=== PATIENT | male | born 1980 | race Caucasian/White ===

== ENCOUNTER 2023-06-23 14:34 | Inpatient (IN) | payer OTHER ==
--- NOTE | 2023-06-23 15:30 | XR ---
Right foot. HISTORY: Soft tissue injury right great toe COMPARISON: None. TECHNIQUE: 3 views the right foot were obtained. FINDINGS: There is marked soft tissue swelling and soft tissue gas in the right great toe. There is no underlyi ng osseous or intra-articular abnormality. There is a tiny linear radiopaque foreign body along the d orsal aspect of the distal phalanx of the great toe. IMPRESSION: 1. Marked soft tissue swelling , soft tissue gas and tiny radiopaque foreign body of the right great toe as described above. 2. No osseous or intra-articular abnormality.
--- NOTE | 2023-06-23 15:50 | ED ---
General Adult HPI - General Source: patient Mode of arrival: ambulatory Limitations: no limitations <Rosales Rodriguez - Last Filed: 06/23/23 15:51> <Vinnie Patel - Last Filed: 06/23/23 20:03> - General Chief complaint: Skin/Abscess/Foreign Body Stated complaint: wound on foot - History of Present Illness Initial comments: Quick note: Patient is a 42 year old male with left foot wound. Patient states a wound started on the right great toe a few weeks ago, but worsened in the past week. It is painful at times. Patient is not diabetic. No neuropathy. He denies any vascular issues that he is aware of. He has felt feverish over the past few days but has not taken his temperature. He has not had any treatment started. (Rosales Rodriguez) - Related Data Home Medications Medication Instructions Recorded Confirmed No Known Home Medications 06/23/23 06/23/23 Allergies Allergy/AdvReac Type Severity Reaction Status Date / Time No Known Allergies Allergy Verified 06/23/23 20:02 Review of Systems ROS Other: All systems not noted in ROS Statement are negative. <Rosales Rodriguez - Last Filed: 06/23/23 15:51> ROS Other: All systems not noted in ROS Statement are negative. <Vinnie Patel - Last Filed: 06/23/23 20:03> ROS Statement: Those systems with pertinent positive or pertinent negative responses have been documented in the HPI. Past Medical History Past Medical History: No Reported History History of Any Multi-Drug Resistant Organisms: None Reported Past Surgical History: No Surgical Hx Reported Past Psychological History: No Psychological Hx Reported Smoking Status: Never smoker Past Alcohol Use History: None Reported Past Drug Use History: None Reported <Rosales Rodriguez - Last Filed: 06/23/23 15:51> General Exam Limitations: no limitations <Rosales Rodriguez - Last Filed: 06/23/23 15:51> General appearance: alert, in no apparent distress Head exam: Present: atraumatic, normocephalic Eye exam: Present: normal appearance Respiratory exam: Present: normal lung sounds bilaterally. Absent: respiratory distress, wheezes Cardiovascular Exam: Present: regular rate, normal rhythm GI/Abdominal exam: Present: soft. Absent: distended, tenderness, guarding Extremities exam: Present: other (Soft tissue swelling, erythema into the mid foot. There is ulceration at the base of the right great toe with wet gangrene. Foul, purulent drainage) Psychiatric exam: Present: normal affect, normal mood Skin exam: Present: warm <EvangelinaVinnie bowers Siomara - Last Filed: 06/23/23 20:03> Course Vital Signs 06/23/23 06/23/23 15:04 18:40 Temperature 99.1 F 98.3 F Pulse Rate 103 H 90 Respiratory 20 20 Rate Blood Pressure 166/83 O2 Sat by Pulse 98 99 Oximetry Medical Decision Making <Rosales Rodriguez - Last Filed: 06/23/23 15:51> - Lab Data Result diagrams: 06/23/23 18:20 06/23/23 18:20 <EvangelinamirnaVinnie Siomara - Last Filed: 06/23/23 20:03> - Medical Decision Making Exam showed significant right great toe edema/erthema. Electronically signed by Rosales Rodriguez PA-C (Rosales Rodriguez) Was pt. sent in by a medical professional or institution ([facility], MORTGAGE FIELD INSPECTOR, urgent care, hospital, or fpc...) When possible be specific @ -No Did you speak to anyone other than the patient for history (EMS, parent, family, police, friend...)? What history was obtained from this source @ -No Did you review nursing and triage notes (agree or disagree)? Why? @ -I reviewed and agree with nursing and triage notes Were old charts reviewed (outside hosp., previous admission, EMS record, old EKG, old radiological studies, urgent care reports/EKG's, fpc records)? Report findings @ -No old charts were reviewed Differential Diagnosis (chest pain, altered mental status, abdominal pain women, abdominal pain men, vaginal bleeding, weakness, fever, dyspnea, syncope, headache, dizziness, GI bleed, back pain, seizure, CVA, palpatations, mental health, musculoskeletal)? @Cellulitis, neck doesn't fasciitis, gangrene, diabetic foot ulcer EKG interpreted by me (3pts min.). @ -As above X-rays interpreted by me (1pt min.). @X-ray showing soft tissue swelling, trace amount of soft tissue gas at the site of ulceration with questionable foreign body. CT interpreted by me (1pt min.). @ -None done U/S interpreted by me (1pt. min.). @ -None done What testing was considered but not performed or refused? (CT, X-rays, U/S, labs)? Why? @ -None What meds were considered but not given or refused? Why? @ -None Did you discuss the management of the patient with other professionals (professionals i.e. Dr., PA, MORTGAGE FIELD INSPECTOR, lab, RT, psych nurse, social worker health services, accounts payable clerk, teacher, electrical engineering drafting officer, case planner)? Give summary @ -Sound physician group Was smoking cessation discussed for >3mins.? @ -No Was critical care preformed (if so, how long)? @ -No Were there social determinants of health that impacted care today? How? (Homelessness, low income, unemployed, alcoholism, drug addiction, transportation, low edu. Level, literacy, decrease access to med. care, nursing home, rehab)? @ -No Was there de-escalation of care discussed even if they declined (Discuss DNR or withdrawal of care, Hospice)? DNR status @ -No What co-morbidities impacted this encounter? (DM, HTN, Smoking, COPD, CAD, Cancer, CVA, ARF, Chemo, Hep., AIDS, mental health diagnosis, sleep apnea, morbid obesity)? @ -Patient does not follow regularly with a doctor Was patient admitted / discharged? Hospital course, mention meds given and route, prescriptions, significant lab abnormalities, going to OR and other pertinent info. @ -[22-year-old male with soft tissue infection of the right great toe, wet gangrene on exam. There is ulceration at the plantar surface of the great toe and soft tissue gas on x-ray. There is erythema into the mid foot. Patient is afebrile with mild leukocytosis. He will be admitted for IV antibiotics and vascular consult. Case discussed with Dr. Delacruz who will admit. Undiagnosed new problem with uncertain prognosis? @ -No Drug Therapy requiring intensive monitoring for toxicity (Heparin, Nitro, Insulin, Cardizem)? @ -No Were any procedures done? @ -No Diagnosis/symptom? @ -[Wet gangrene, cellulitis Acute, or Chronic, or Acute on Chronic? @ -Acute Uncomplicated (without systemic symptoms) or Complicated (systemic symptoms)? @ -default Side effects of treatment? @ -No Exacerbation, Progression, or Severe Exacerbation? @ -No Poses a threat to life or bodily function? How? (Chest pain, [place], [place], pneumonia, PE, COPD, DKA, ARF, appy, cholecystitis, CVA, Diverticulitis, Homicidal, Suicid al, threat to staff... and all critical care pts) @ -[Yes, sepsis (Vinnie Patel) - Lab Data Lab Results 06/23/23 06/23/23 06/23/23 Range/Units 18:20 18:20 18:20 WBC 12.5 H (3.8-10.6) k/uL RBC 5.30 (4.30-5.90) m/uL Hgb 15.1 (13.0-17.5) gm/dL Hct 44.3 (39.0-53.0) % MCV 83.6 (80.0-100.0) fL MCH 28.5 (25.0-35.0) pg MCHC 34.1 (31.0-37.0) g/dL RDW 11.9 (11.5-15.5) % Plt Count 336 (150-450) k/uL MPV 7.1 Neutrophils % 76 % Lymphocytes % 12 % Monocytes % 7 % Eosinophils % 0 % Basophils % 0 % Neutrophils # 9.5 H (1.3-7.7) k/uL Lymphocytes # 1.5 (1.0-4.8) k/uL Monocytes # 0.9 (0-1.0) k/uL Eosinophils # 0.0 (0-0.7) k/uL Basophils # 0.0 (0-0.2) k/uL Sodium 131 L (137-145) mmol/L Potassium 4.4 (3.5-5.1) mmol/L Chloride 92 L (98-107) mmol/L Carbon Dioxide 24 (22-30) mmol/L Anion Gap 15 mmol/L BUN 12 (9-20) mg/dL Creatinine 0.56 L (0.66-1.25) mg/dL Est GFR (CKD-EPI)AfAm >90 (>60 ml/min/1.73 sqM) Est GFR (CKD-EPI)NonAf >90 (>60 ml/min/1.73 sqM) Glucose 318 H (74-99) mg/dL Plasma Lactic Acid Hayes 1.4 (0.7-2.0) mmol/L Calcium 9.2 (8.4-10.2) mg/dL Total Bilirubin 0.8 (0.2-1.3) mg/dL AST 20 (17-59) U/L ALT 21 (4-49) U/L Alkaline Phosphatase 106 (38-126) U/L C-Reactive Protein 25.5 H (<1.0) mg/dL Total Protein 7.0 (6.3-8.2) g/dL Albumin 3.7 (3.5-5.0) g/dL Disposition <Rosales Rodriguez - Last Filed: 06/23/23 15:51> Is patient prescribed a controlled substance at d/c from ED?: No Time of Disposition: 19:41 <Vinnie Patel - Last Filed: 06/23/23 20:03> Clinical Impression: Cellulitis, Wet gangrene Disposition: ADMITTED IP TO THIS HOSP Condition: Stable Referrals: None,Stated [Primary Care Provider] - 1-2 days
[2023-06-23] MEDS ORDERED: VANCOMYCIN IV PER PHARMACY 1 EACH MISC MISCELLANE PRN (18:14)
[2023-06-23] MEDS ORDERED: VANCOMYCIN 1,750 MG in SODIUM CHLORIDE 0.9% 500 ML 500 ML IVPB ONE (18:30)
[2023-06-23 19:21] LABS: Basophils % (A) 0 %; Eosinophils % (A) 0 %; HCT 44.3 % (39.0-53.0); HGB 15.1 gm/dL (13.0-17.5); Lymphocytes # (A) 1.5 k/uL (1.0-4.8); Lymphocytes % (A) 12 %; MCH 28.5 pg (25.0-35.0); MCHC 34.1 g/dL (31.0-37.0); MCV 83.6 fL (80.0-100.0); Mean Platelet Volume 7.1; Monocytes # (A) 0.9 k/uL (0-1.0); Monocytes % (A) 7 %; Neutrophils # (A) 9.5 k/uL (1.3-7.7); Neutrophils % (A) 76 %; Platelet Count 336 k/uL (150-450); RDW 11.9 % (11.5-15.5); WBC 12.5 k/uL (3.8-10.6)
[2023-06-23] MEDS ORDERED: HYDROmorphone 0.5 MG/0.5 ML SYRINGE IVP PRN (19:23)
[2023-06-23] MEDS ORDERED: ACETAMINOPHEN TAB 325 MG TAB PO PRN (19:23)
[2023-06-23] MEDS ORDERED: NALOXONE 0.4 MG/ML 1 ML VIAL IV PRN (19:23)
[2023-06-23] MEDS: PIPERACILLIN-TAZOBACTAM 3.375 GM in SODIUM CHLORIDE 0.9% 100 ML IVPB SCH (19:27)
[2023-06-23 19:36] LABS: ALT 21 U/L (4-49); AST 20 U/L (17-59); African American GFR (CKD) >90 (>60 ml/min/1.73 sqM); Albumin 3.7 g/dL (3.5-5.0); Alkaline Phosphatase 106 U/L (38-126); Anion Gap 15 mmol/L; Blood Urea Nitrogen 12 mg/dL (9-20); Calcium 9.2 mg/dL (8.4-10.2); Carbon Dioxide 24 mmol/L (22-30); Chloride 92 mmol/L (98-107); Glucose 318 mg/dL (74-99); Non-African American GFR(CKD) >90 (>60 ml/min/1.73 sqM); Potassium 4.4 mmol/L (3.5-5.1); Sodium 131 mmol/L (137-145); Total Bilirubin 0.8 mg/dL (0.2-1.3)
[2023-06-23 19:51] LABS: C Reactive Protein 25.5 mg/dL (<1.0)
[2023-06-23] MEDS ORDERED: ALPRAZolam 0.25 MG TAB PO PRN (19:52)
[2023-06-23] MEDS ORDERED: ONDANSETRON 4 MG/2 ML VIAL IVP PRN (19:52)
[2023-06-23] MEDS: SODIUM CHLORIDE 0.9% 1,000 ML IV SCH (19:55)
[2023-06-23] MEDS ORDERED: DEXTROSE 50% SYRINGE 50 ML IVP PRN ×2 (20:03)
--- NOTE | 2023-06-23 20:03 | P.HPIM ---
History of Present Illness H&P Date: 06/23/23 Chief Complaint: right great toe swelling 42-year-old male with significant past medical history Patient coming in with right great toe swelling and skin sloughing with proximal erythema this has been going on for about 2 weeks he does not recall any specific injury that started as a blister over the plantar surface of his right great toe then he try to clear it pokes around it and then got worse gradually he noticed some increased pain and erythema for which she was using triple antibiotics topical but over the past couple days he started having some low- grade fevers and chills and noticed that the swelling got worse with discoloration and sloughing of the skin along with proximal erythema warmth to the touch and swelling over the foot for which she decided to come in for evaluation today. 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 Patient denies any history of diabetes hypertension or any other medical issues however he does not see a doctor patient does not take any prescription medications Patient denies tobacco smoking illicit drugs or heavy alcohol Denies any upper respiratory infection symptoms nausea vomiting chest pain trouble breathing abdominal pain changes in bowel or urinary habits Review of systems review of systems Pertinent positives as noted in HPI. All other systems were reviewed and are negative on exam Constitutional: No acute distress, conversant, pleasant Eyes: Anicteric sclerae, moist conjunctiva, Pupils equal round reactive to light ENMT: NC/AT Oropharynx clear, no erythema, or exudates Neck: Supple, no masses, or JVD No carotid bruits No thyromegaly Lungs: Clear to auscultation Clear to percussion Normal respiratory effort, no accessory muscle use Cardiovascular: Heart regular in rate and rhythm, No murmurs, gallops, or rubs No peripheral edema Abdominal: Soft Nontender, no guarding, rebound or rigidity Abdomen moving with respiration Normoactive bowel sounds No hepatomegaly, No splenomegaly No palpable mass No abdominal wall hernia noted Skin: Swelling of the right great toe with discoloration of the toe sloughing of the skin no active drainage, with erythema extending proximally into the midfoot along with swelling and some pinkish discoloration extending into the mid leg tender to palpation warm to the touch Extremities: No digital cyanosis No clubbing Pedal pulses intact and symmetrical Radial pulses intact and symmetrical No calf tenderness Psychiatric: Alert and oriented to person, place and time Appropriate affect fair judgement Neuro Muscles Strength 5/5 in all 4 extremities Sensation to light touch grossly present throughout Cranial nerves II-XII grossly intact Lymphatics: no palpable cervical or supraclavicular lymph nodes Past Medical History Past Medical History: No Reported History History of Any Multi-Drug Resistant Organisms: None Reported Past Surgical History: No Surgical Hx Reported Past Psychological History: No Psychological Hx Reported Smoking Status: Never smoker Past Alcohol Use History: None Reported Past Drug Use History: None Reported Medications and Allergies Home Medications Medication Instructions Recorded Confirmed Type No Known Home Medications 06/23/23 06/23/23 History Allergies Allergy/AdvReac Type Severity Reaction Status Date / Time No Known Allergies Allergy Verified 06/23/23 15:07 Physical Exam Vitals: Vital Signs Temp Pulse Resp BP Pulse Ox 06/23/23 18:40 98.3 F 90 20 99 06/23/23 15:04 99.1 F 103 H 20 166/83 98 Intake and Output 06/23/23 06/23/23 06/23/23 06:59 14:59 22:59 Other: Weight 113.398 kg Results CBC & Chem 7: 06/23/23 18:20 06/23/23 18:20 Labs: Abnormal Lab Results - Last 24 Hours (Table) 06/23/23 Range/Units 18:20 WBC 12.5 H (3.8-10.6) k/uL Neutrophils # 9.5 H (1.3-7.7) k/uL Assessment and Plan Assessment: 42-year-old male no significant past medical history coming in with couple week history of gradually worsening right great toe swelling and discoloration and skin sloughing denies any specific injuries I discussed case with the adductor accepted the admission for sepsis secondary to with gangrene of the right great toe with anticipated length of stay more than 2 midnights Sepsis secondary to with gangrene of the right great toe Follow-up cultures Vascular surgery consult Initiate patient on Zosyn 3.75 g every 8 hours IV piggyback Vancomycin dosing by pharmacy Tylenol for fever 650 mg when necessary every 6 hours by mouth [place] 53 25 mg every 6 hours when necessary 1 tab by mouth IV fluid hydration, start with septic bolus 1 L/h 2 then continue with 130 mL per hour Rule out underlying diabetes check A1c CBC reported white count of 12.5, hemoglobin 15.1 CRP elevated 25.5 Follow-up ESR Foot x-ray showed soft tissue swelling soft gas and tiny radiopaque foreign body in the right great toe along the dorsal aspect of the great toe, no evidence of osseous or intra-articular abnormalities Suspected underlying diabetes mellitus random blood glucoses 318 Follow-up A1c Start patient on insulin sliding scale Elevated blood pressure without diagnosis of hypertension Continue to monitor Suspect patient also hypertensive When necessary blood pressure meds for systolic blood pressure above 180 Full code DVT prophylaxis heparin subcu 5000 unit 3 times a day
[2023-06-23] MEDS ORDERED: SODIUM CHLORIDE 0.9% 2,000 ML IV ONE (20:04)
[2023-06-23] MEDS ORDERED: cloNIDine HCL 0.2 MG TAB PO PRN (20:04)
[2023-06-23 20:51] LABS: Glucose,Whole Blood 287 mg/dL (70-110)
[2023-06-23] MEDS: INSULIN ASPART (NovoLOG) 100 UNIT/ML VIAL SQ SCH (21:31)
[2023-06-24] MEDS: PIPERACILLIN-TAZOBACTAM 3.375 GM in SODIUM CHLORIDE 0.9% 100 ML IVPB SCH ×2 (00:54→08:11)
[2023-06-24] MEDS: HEPARIN SODIUM,PORCINE 5,000 UNIT/ML 1 ML VIAL SQ SCH ×4 (00:55→22:14)
[2023-06-24] MEDS: SODIUM CHLORIDE 0.9% 1,000 ML IV SCH ×3 (03:05→14:37)
[2023-06-24] MEDS: VANCOMYCIN 1,750 MG in SODIUM CHLORIDE 0.9% 500 ML 500 ML IVPB SCH ×2 (05:02→12:34)
[2023-06-24 06:15] LABS: Glucose,Whole Blood 197 mg/dL (70-110)
[2023-06-24] MEDS: INSULIN ASPART (NovoLOG) 100 UNIT/ML VIAL SQ SCH ×4 (06:28→22:14)
[2023-06-24 10:59] LABS: Glucose,Whole Blood 256 mg/dL (70-110)
--- NOTE | 2023-06-24 13:10 | P.PN ---
Subjective Progress Note Date: 06/24/23 Hospital course: Patient is a 42-year-old male with no reported past medical history however does not follow up outpatient with a primary doctor. Patient presented to the emergency department on 06/23/23 secondary to right great toe pain and swelling. Patient was found to have significant swelling of right great toe accompanied by erythema and sloughing of skin with erythema extending up into dorsal surface of foot as well as lower and mid youngblood. He underwent full evaluation in the emergency department. Labs were completed showing leukocytosis with WBC count of 12.5. BMP showing mild hyponatremia sodium 131, hypochloremia with chloride of 92, and an elevated glucose of 318. Inflammatory markers were elevated with ESR of 106 and CRP of 25.5. X-ray right foot showing marked soft tissue swelling with soft gas and tiny radiopaque foreign body on the right great toe negative for osseous or intra-articular abnormality. Patient admitted under services with consultation to vascular surgery and infectious disease. Physical exam: Vital signs reviewed and stable. General: Nontoxic, no distress and appears stated age. Derm: Skin warm and dry, normal coloration for ethnicity.patient significant swelling of right great toe accompanied by erythema and sloughing of skin with erythema extending up into dorsal surface of foot as well as lower and mid youngblood. Head: Atraumatic, normocephalic and symmetric. Eyes: EOMs intact, no lid lag, and anicteric sclera Mouth: no lip lesions, mucus membranes moist Cardiovascular: regular rate and rhythm with normal S1S2, no murmur, positive posterior tibial pulses bilaterally, and cap refill < 2 seconds. Lungs: Respirations even, regular, and unlabored on room air. Lungs CTA bilaterally, no rhonchi, no rales, no wheezing, and no accessory muscle usage. Abdominal: soft, nontender to palpation, no guarding, no appreciable organomegaly Ext: ROM intact. No gross muscle atrophy, no edema, no contractures Neuro: Speech clear, face symmetrical and CN II-XII grossly intact with no noted focal neuro deficits Psych: Alert and oriented to person, place, time, and situation. Appropriate and pleasant affect. Assessment and Plan of Care: Bacteremia Gangrene infection of right great toe Sepsis secondary to above -Vascular surgery following -Infectious disease following -Continuation of IV antibiotics with Unasyn 3 g every 6 hours pending final culture and sensitivity reports. -Blood cultures preliminarily positive for group B strep 2 out of 2 cultures. We'll follow up on final culture and sensitivity reports. -Tylenol 650 mg every 6 hours as needed for mild pain/fever, [place] 5/325 mg tablets as needed for moderate pain, and Dilaudid 0.5 mg every 3 hours as needed for severe pain. Newly diagnosed diabetes mellitus with a hemoglobin A1c of 12.7% Hyperglycemia with Pseudohyponatremia -Patient placed on glycemic protocol with NovoLog sliding scale. Patient will likely require home insulin upon discharge. Hypertension with Poorly controlled blood pressures -Patient denies history of hypertension blood pressure is elevated as high as 171/95. -Patient started on amlodipine 5 mg daily. Data and imaging reviewed: Labs were completed and reviewed. CBC showing leukocytosis with WBC count of 12.5. BMP showing mild hyponatremia sodium 131, hypochloremia with chloride of 92, and an elevated glucose of 318. Inflammatory markers were elevated with ESR of 106 and CRP of 25.5. X-ray right foot showing marked soft tissue swelling with soft gas and tiny radiopaque foreign body on the right great toe negative for osseous or intra- articular abnormality Vital signs reviewed. Blood pressure 157/77, heart rate 87, temp 101.1F, respiratory rate 20, and SpO2 of 95% on room air. CODE STATUS: Full code DVT prophylaxis: Heparin Anticipated discharge date: Clinical course to determine Anticipated discharge place: Clinical course to determine Patient was seen independently by Nurse Pracitioner. This document was prepared using [employer] dictation software. Please allow for errors in woodenware assembler, while rare they do occur. Manny Sanchez NP rendered care for this patient independently, reviewed the findings and plan as documented in the note above. I did not physically speak with or examine the patient on this date. Objective - Vital Signs Vital signs: Vital Signs Temp 99.6 F 06/24/23 09:07 Pulse 87 06/24/23 07:14 Resp 20 06/24/23 07:14 BP 157/77 06/24/23 07:14 Pulse Ox 95 06/24/23 07:14 FiO2 Intake & Output 06/23/23 06/24/23 06/24/23 18:59 06:59 18:59 Weight 113.398 kg 113.398 kg Other: # Voids 3 - Labs CBC & Chem 7: 06/25/23 04:26 06/25/23 04:26 Labs: Abnormal Lab Results - Last 24 Hours (Table) 06/23/23 06/23/23 06/23/23 Range/Units 18:20 18:20 18:20 WBC 12.5 H (3.8-10.6) k/uL Neutrophils # 9.5 H (1.3-7.7) k/uL ESR 106 H (0-15) mm/Hr Sodium 131 L (137-145) mmol/L Chloride 92 L (98-107) mmol/L Creatinine 0.56 L (0.66-1.25) mg/dL Glucose 318 H (74-99) mg/dL POC Glucose (mg/dL) (70-110) mg/dL C-Reactive Protein 25.5 H (<1.0) mg/dL 06/23/23 06/24/23 Range/Units 20:50 06:14 WBC (3.8-10.6) k/uL Neutrophils # (1.3-7.7) k/uL ESR (0-15) mm/Hr Sodium (137-145) mmol/L Chloride (98-107) mmol/L Creatinine (0.66-1.25) mg/dL Glucose (74-99) mg/dL POC Glucose (mg/dL) 287 H 197 H (70-110) mg/dL C-Reactive Protein (<1.0) mg/dL
[2023-06-24] MEDS: AMPICILLIN-SULBACTAM 3 GM in SODIUM CHLORIDE 0.9% 100 ML IVPB SCH ×2 (14:35→22:14)
[2023-06-24] MEDS: amLODIPine 5 MG TAB PO SCH (16:17)
[2023-06-24 17:12] LABS: Glucose,Whole Blood 221 mg/dL (70-110)
[2023-06-24 20:52] LABS: Glucose,Whole Blood 260 mg/dL (70-110)
[2023-06-24] MEDS: oxyCODONE-APAP 5-325MG 1 EACH TAB PO PRN (22:36)
[2023-06-25] MEDS: SODIUM CHLORIDE 0.9% 1,000 ML IV SCH ×3 (01:16→16:57)
[2023-06-25] MEDS: AMPICILLIN-SULBACTAM 3 GM in SODIUM CHLORIDE 0.9% 100 ML IVPB SCH ×4 (02:30→21:14)
[2023-06-25 06:05] LABS: Glucose,Whole Blood 179 mg/dL (70-110)
[2023-06-25] MEDS: INSULIN ASPART (NovoLOG) 100 UNIT/ML VIAL SQ SCH ×4 (06:32→21:13)
--- NOTE | 2023-06-25 07:42 | P.CONS ---
History of Present Illness - Reason for Consult Consult date: 06/24/23 Gangrene right great toe Requesting physician: Manny Sanchez - Chief Complaint Right big toe discussion swelling redness x few days - History of Present Illness Patient is a 42-year-old male with no significant past medical history presenting to the ER yesterday afternoon for a evaluation of the right big toe swelling and redness apparently the patient did have a trauma initially few weeks ago and the patient has been taking care of it at home with some peroxide and soaking however he noticed having worsening swelling redness to the right big toe patient did have some symptoms of pressure but denies any throbbing or excruciating pain did have some foul-smelling drainage patient mention he did have some chills but did not take his temperature patient on presentation to the hospital did have a low-grade fever of 99.1 degrees for right he did spike a fever of 101 F this morning patient was not tachycardic hypotensive or hypoxic did however did have elevated white count of -12.5 with a left shift kidney function is 0.56 liver exams are normal CRP and sed rate are elevated patient did have a x-ray of the foot marked soft tissue swelling soft tissue gas and tiny radiopaque foreign body of the right great toe patient was started on vancomycin and Zosyn subsequently blood cultures came back positive with start that has prompted this infectious disease consultation Case has been discussed with [employer] antibiotic adjusted to Unasyn pending evaluation, patient also noticed to have a elevated blood sugar of 318 with the present diagnosis of diabetes however the patient not aware of any diagnosis of diabetes before presentation to the hospital Review of Systems Positive point and negatives has been mentioned in the HPI, complete review of systems was performed and all other systems are negative Past Medical History Past Medical History: No Reported History History of Any Multi-Drug Resistant Organisms: None Reported Past Surgical History: Adenoidectomy, Tonsillectomy Additional Past Anesthesia/Blood Transfusion Reaction / Comm: no previous infusion Past Psychological History: No Psychological Hx Reported Smoking Status: Never smoker Past Alcohol Use History: None Reported Past Drug Use History: None Reported - Past Family History Father Family Medical History: Diabetes Mellitus, Deep Vein Thrombosis (DVT), Hyperlipidemia Medications and Allergies Home Medications Medication Instructions Recorded Confirmed Type Insulin Glargine,Hum.rec.anlog 25 units SQ DAILY 30 Days #1 each 12/04/23 Rx [Lantus Solostar Pen] amLODIPine [Norvasc] 10 mg PO DAILY 30 Days #30 tab 07/02/23 Rx cefTRIAXone [Rocephin] 2 gm IVPB Q24HR each 07/02/23 Rx metFORMIN HCL [Glucophage] 500 mg PO BID-W/MEALS 30 Days #60 07/02/23 Rx tab metroNIDAZOLE [Flagyl] 500 mg PO TID #90 tab 07/02/23 Rx oxyCODONE-APAP 5-325MG [Percocet 1 each PO Q4HR PRN #18 tab 07/02/23 Rx 5-325 mg] Allergies Allergy/AdvReac Type Severity Reaction Status Date / Time No Known Allergies Allergy Verified 06/23/23 20:02 Physical Exam Vitals: Vital Signs Temp Pulse Resp BP Pulse Ox 06/24/23 19:57 99.6 F 84 17 148/84 90 L 06/24/23 12:56 98.2 F 80 19 152/78 93 L 06/24/23 09:07 99.6 F 06/24/23 07:14 101.1 F H 87 20 157/77 95 06/24/23 01:09 99.5 F 89 168/80 93 L 06/23/23 20:40 99.7 F H 85 171/95 98 Intake and Output 06/24/23 06/24/23 06/24/23 06:59 14:59 22:59 Intake Total 1640 Balance 1640 Intake: Intake, IV Titration 1640 Amount Piperacillin-Tazobactam 3 100 .375 gm In Sodium Chloride 0.9% 100 ml @ 25 mls/hr IVPB Q8HR [facility] Rx# :[id number] Sodium Chloride 0.9% 1, 1040 000 ml @ 130 mls/hr IV . Q7H42M [facility] Rx#:[id number] Vancomycin 1,750 mg In 500 Sodium Chloride 0.9% 500 ml 500 ml @ 167 mls/hr IVPB Q8H [facility] Rx#: [id number] Other: # Voids 3 GENERAL DESCRIPTION: Middle-aged male lying in bed, no distress. No tachypnea or accessory muscle of respiration use. HEENT: Shows Pallor , no scleral icterus. Oral mucous membrane is dry. No pharyngeal erythema or thrush NECK: Trachea central, no thyromegaly. LUNGS: Unlabored breathing. Clear to auscultation anteriorly. No wheeze or crackle. HEART: S1, S2, regular rate and rhythm. No loud murmur ABDOMEN: Soft, no tenderness , guarding or rigidity, no organomegaly EXTREMITIES: Right big toe with swelling redness and purulent drainage SKIN: No rash, no masses palpable. NEUROLOGICAL: The patient is awake, alert, oriented x3, mood and affect normal. Results CBC & Chem 7: 07/02/23 05:30 07/02/23 05:30 Labs: Abnormal Lab Results - Last 24 Hours (Table) 06/23/23 06/23/23 06/24/23 Range/Units 18:20 20:50 06:14 ESR 106 H (0-15) mm/Hr POC Glucose (mg/dL) 287 H 197 H (70-110) mg/dL Hemoglobin A1c (<=6.0) % 06/24/23 06/24/23 06/24/23 Range/Units 07:21 10:58 17:11 ESR (0-15) mm/Hr POC Glucose (mg/dL) 256 H 221 H (70-110) mg/dL Hemoglobin A1c 12.7 H (<=6.0) % Microbiology - Last 24 Hours (Table) 06/23/23 18:35 Blood Culture Gram Stain - Preliminary Blood 06/23/23 18:30 Blood Culture Gram Stain - Preliminary Blood Assessment and Plan (1) Cellulitis Status: Acute Code(s): L03.90 - CELLULITIS, UNSPECIFIED SNOMED Code(s): 271828870 (2) Diabetic infection of right foot Status: Acute Code(s): E11.628 - TYPE 2 DIABETES MELLITUS WITH OTHER SKIN COMPLICATIONS; L08.9 - LOCAL INFECTION OF THE SKIN AND SUBCUTANEOUS TISSUE, UNSP SNOMED Code(s): 66223175 (3) Wet gangrene Status: Acute Code(s): I96 - GANGRENE, NOT ELSEWHERE CLASSIFIED SNOMED Code(s): 915770315 Plan: 1patient presented to hospital with sepsis in this patient who did have fever e levated white count is also likely her right big toe diabetic foot infection in this patient with evidence of significant swelling and gas formation likely related to the polymicrobial melissa usually associated with diabetic foot infection 2-positive blood culture with staph likely due to right big toe diabetic foot infection 3-blood cultures to be repeated document clearance of bacteremia 4-await vascular surgery evaluation for debridement and deep ulcer 5-Unasyn 3 g every 6 hours to continue, may need IV antibiotic on discharge We will follow on clinical condition and cultures to further adjust medication if needed Thank you for this consultation we will follow the patient along with you Dictation was produced using [employer] dictation software. please excuse any grammatical, word or spelling errors. Time with Patient: Greater than 30
[2023-06-25] MEDS: amLODIPine 5 MG TAB PO SCH (08:27)
[2023-06-25] MEDS: HEPARIN SODIUM,PORCINE 5,000 UNIT/ML 1 ML VIAL SQ SCH ×3 (08:30→23:12)
[2023-06-25] MEDS: oxyCODONE-APAP 5-325MG 1 EACH TAB PO PRN (08:40)
[2023-06-25 08:58] LABS: ALT 19 U/L (10-49); AST 15 U/L (14-35); Albumin 2.8 g/dL (3.8-4.9); Albumin/Globulin Ratio 1.08 Ratio (1.60-3.17); Alkaline Phosphatase 136 U/L (41-126); BUN/Creat Ratio 13.67 Ratio (12.00-20.00); Blood Urea Nitrogen 8.2 mg/dL (9.0-27.0); Calcium 8.3 mg/dL (8.7-10.3); Carbon Dioxide 22.1 mmol/L (21.6-31.8); Chloride 102 mmol/L (96-109); Chol/HDL Ratio 5.67 Ratio; Globulin 2.6 g/dL (1.6-3.3); Glucose 195 mg/dL (70-110); LDL Cholesterol,Calculated 84.2 mg/dL (0.0-131.0); Sodium 137 mmol/L (135-145); Total Bilirubin 0.3 mg/dL (0.3-1.2); Total Protein 5.4 g/dL (6.2-8.2)
[2023-06-25 09:02] LABS: HCT 36.6 % (39.6-50.0); HGB 12.5 g/dL (13.0-17.0); MCH 28.3 pg (27.0-32.0); MCHC 34.2 g/dL (32.0-37.0); MCV 82.8 FL (80.0-97.0); NRBC Per 100 WBC 0 X 10*3/uL (0.00-0.01); Platelet Count 337 X 10*3/uL (140-440); RBC 4.42 X 10*6/uL (4.40-5.60); RDW 11.9 % (11.5-14.5); WBC 10.68 X 10*3/uL (4.50-10.00)
[2023-06-25 09:43] LABS: Erythrocyte Sedimentation Rate 76 mm/Hr (0-15)
[2023-06-25] MEDS ORDERED: VANCOMYCIN TROUGH DUE 1 EACH MISC MISCELLANE ONE (11:00)
[2023-06-25 11:31] LABS: Glucose,Whole Blood 184 mg/dL (70-110)
--- NOTE | 2023-06-25 12:27 | P.GSCN ---
History of Present Illness Consult date: 06/25/23 Reason for Consult: Wet gangrene Requesting physician: Vinnie Patel History of present illness: Patient is a 42-year-old male with newly diagnosed diabetes mellitus this admission who presented to the emergency department with pain and concern for infection of his right great toe. He states he started noticing swelling of his toe and foot about 1-2 weeks ago. He progressively started getting worse and draining. He came in for further evaluation for possible infection. He denies any injury to the toe. He states that he did have fevers and chills at home. No nausea, vomiting, abdominal pain, shortness of breath or chest pain. Right foot x-ray reports marked soft tissue swelling, soft tissue gas and tiny radiopaque foreign body at the right great toe. No osseous or intra-articular abnormality. Tiny linear radiopaque foreign body along the dorsal aspect of the distal phalanx of the great toe. Review of Systems - Constitutional Constitutional Comment(s): A 14 point review systems was completed all pertinent positives and negatives as stated in the HPI. Past Medical History Past Medical History: No Reported History History of Any Multi-Drug Resistant Organisms: None Reported Past Surgical History: Adenoidectomy, Tonsillectomy Additional Past Anesthesia/Blood Transfusion Reaction / Comm: no previous infusion Past Psychological History: No Psychological Hx Reported Smoking Status: Never smoker Past Alcohol Use History: None Reported Past Drug Use History: None Reported - Past Family History Father Family Medical History: Diabetes Mellitus, Deep Vein Thrombosis (DVT), Hyperlipidemia Medications and Allergies Home Medications Medication Instructions Recorded Confirmed Type No Known Home Medications 06/23/23 06/23/23 History Allergies Allergy/AdvReac Type Severity Reaction Status Date / Time No Known Allergies Allergy Verified 06/23/23 20:02 Surgical - Exam Vital Signs Temp Pulse Resp BP Pulse Ox 99.1 F 103 H 20 166/83 98 06/23/23 15:04 06/23/23 15:04 06/23/23 15:04 06/23/23 15:04 06/23/23 15:04 General appearance: The patient is alert, oriented, appears in no acute distress. Obese. HET: Head is normocephalic and atraumatic. Pupils are equal and reactive. Neck: Supple. Heart: Regular. Lungs: Equal expansion, normal respiratory effort. Abdomen: Soft, nontender, nondistended. Extremities: Bilateral lower extremity swelling right greater than left. Palpable bilateral DP pulses. Right foot with erythema, great toe swelling, wound with drainage. Neurological: No focal deficits. Strength and sensation are grossly intact. Results - Labs 06/25/23 04:26 06/25/23 04:26 Abnormal Lab Results - Last 24 Hours (Table) 06/24/23 06/24/23 06/24/23 Range/Units 07:21 10:58 17:11 WBC (4.50-10.00) X 10*3/uL Hgb (13.0-17.0) g/dL Hct (39.6-50.0) % Anion Gap (4.00-12.00) mmol/L BUN (9.0-27.0) mg/dL Glucose (70-110) mg/dL POC Glucose (mg/dL) 256 H 221 H (70-110) mg/dL Hemoglobin A1c 12.7 H (<=6.0) % Calcium (8.7-10.3) mg/dL Alkaline Phosphatase (41-126) U/L C-Reactive Protein (0.00-0.80) mg/dL Total Protein (6.2-8.2) g/dL Albumin (3.8-4.9) g/dL Albumin/Globulin Ratio (1.60-3.17) Ratio HDL Cholesterol (40.00-60.00) mg/dL 06/24/23 06/25/23 06/25/23 Range/Units 20:50 04:26 04:26 WBC 10.68 H (4.50-10.00) X 10*3/uL Hgb 12.5 L (13.0-17.0) g/dL Hct 36.6 L (39.6-50.0) % Anion Gap 12.90 H (4.00-12.00) mmol/L BUN 8.2 L (9.0-27.0) mg/dL Glucose 195 H (70-110) mg/dL POC Glucose (mg/dL) 260 H (70-110) mg/dL Hemoglobin A1c (<=6.0) % Calcium 8.3 L (8.7-10.3) mg/dL Alkaline Phosphatase 136 H (41-126) U/L C-Reactive Protein 13.90 H (0.00-0.80) mg/dL Total Protein 5.4 L (6.2-8.2) g/dL Albumin 2.8 L (3.8-4.9) g/dL Albumin/Globulin Ratio 1.08 L (1.60-3.17) Ratio HDL Cholesterol 23.80 L (40.00-60.00) mg/dL 06/25/23 Range/Units 06:02 WBC (4.50-10.00) X 10*3/uL Hgb (13.0-17.0) g/dL Hct (39.6-50.0) % Anion Gap (4.00-12.00) mmol/L BUN (9.0-27.0) mg/dL Glucose (70-110) mg/dL POC Glucose (mg/dL) 179 H (70-110) mg/dL Hemoglobin A1c (<=6.0) % Calcium (8.7-10.3) mg/dL Alkaline Phosphatase (41-126) U/L C-Reactive Protein (0.00-0.80) mg/dL Total Protein (6.2-8.2) g/dL Albumin (3.8-4.9) g/dL Albumin/Globulin Ratio (1.60-3.17) Ratio HDL Cholesterol (40.00-60.00) mg/dL Microbiology - Last 24 Hours (Table) 06/23/23 18:35 Blood Culture Gram Stain - Preliminary Blood 06/23/23 18:30 Blood Culture Gram Stain - Preliminary Blood Diabetes panel 06/24/23 06/25/23 Range/Units 07:21 04:26 Sodium 137 (135-145) mmol/L Potassium 4.0 (3.5-5.5) mmol/L Chloride 102 (96-109) mmol/L Carbon Dioxide 22.1 (21.6-31.8) mmol/L BUN 8.2 L (9.0-27.0) mg/dL Creatinine 0.6 (0.6-1.5) mg/dL Glucose 195 H (70-110) mg/dL Hemoglobin A1c 12.7 H (<=6.0) % Calcium 8.3 L (8.7-10.3) mg/dL AST 15 (14-35) U/L ALT 19 (10-49) U/L Alkaline Phosphatase 136 H (41-126) U/L Total Protein 5.4 L (6.2-8.2) g/dL Albumin 2.8 L (3.8-4.9) g/dL Triglycerides 135.00 (0.00-149.00) mg/dL HDL Cholesterol 23.80 L (40.00-60.00) mg/dL Calcium panel 06/25/23 Range/Units 04:26 Calcium 8.3 L (8.7-10.3) mg/dL Albumin 2.8 L (3.8-4.9) g/dL Pituitary panel 06/25/23 Range/Units 04:26 Sodium 137 (135-145) mmol/L Potassium 4.0 (3.5-5.5) mmol/L Chloride 102 (96-109) mmol/L Carbon Dioxide 22.1 (21.6-31.8) mmol/L BUN 8.2 L (9.0-27.0) mg/dL Creatinine 0.6 (0.6-1.5) mg/dL Glucose 195 H (70-110) mg/dL Calcium 8.3 L (8.7-10.3) mg/dL Adrenal panel 06/25/23 Range/Units 04:26 Sodium 137 (135-145) mmol/L Potassium 4.0 (3.5-5.5) mmol/L Chloride 102 (96-109) mmol/L Carbon Dioxide 22.1 (21.6-31.8) mmol/L BUN 8.2 L (9.0-27.0) mg/dL Creatinine 0.6 (0.6-1.5) mg/dL Glucose 195 H (70-110) mg/dL Calcium 8.3 L (8.7-10.3) mg/dL Total Bilirubin 0.3 (0.3-1.2) mg/dL AST 15 (14-35) U/L ALT 19 (10-49) U/L Alkaline Phosphatase 136 H (41-126) U/L Total Protein 5.4 L (6.2-8.2) g/dL Albumin 2.8 L (3.8-4.9) g/dL Assessment and Plan Assessment: 1. Right great toe wound with foreign body 2. Osteomyelitis right great toe 3. Bacteremia 4. New onset diabetes mellitus Plan: 1. Keep nothing by mouth 2. Plan for right great toe amputation with deep tissue cultures today 3. Continue antibiotics per recommendations from infectious disease 4. Strict glycemic control Thank you for this consultation, we will continue to follow. The impression and plan of care has been dictated as directed. I performed a history and examination of this patient, discussed the same with the dictator. I agree with the dictator's note ,documented as a scribe. Any additional findings or plans will be noted.
[2023-06-25 16:24] LABS: Glucose,Whole Blood 179 mg/dL (70-110)
[2023-06-25] MEDS ORDERED: LACTATED RINGERS 1,000 ML IV ONE (17:11)
[2023-06-25 17:23] LABS: Glucose,Whole Blood 184 mg/dL (70-110)
--- NOTE | 2023-06-25 17:30 | P.PN ---
Subjective Progress Note Date: 06/25/23 Hospital course: Patient is a 42-year-old male with no reported past medical history however does not follow up outpatient with a primary doctor. Patient presented to the emergency department on 06/23/23 secondary to right great toe pain and swelling. Patient was found to have significant swelling of right great toe accompanied by erythema and sloughing of skin with erythema extending up into dorsal surface of foot as well as lower and mid youngblood. He underwent full evaluation in the emergency department. Labs were completed showing leukocytosis with WBC count of 12.5. BMP showing mild hyponatremia sodium 131, hypochloremia with chloride of 92, and an elevated glucose of 318. Inflammatory markers were elevated with ESR of 106 and CRP of 25.5. X-ray right foot showing marked soft tissue swelling with soft gas and tiny radiopaque foreign body on the right great toe negative for osseous or intra-articular abnormality. Patient admitted under services with consultation to vascular surgery and infectious disease. Physical exam: Vital signs reviewed and stable. General: Nontoxic, no distress and appears stated age. Derm: Skin warm and dry, normal coloration for ethnicity.patient significant swelling of right great toe accompanied by erythema and sloughing of skin with erythema extending up into dorsal surface of foot as well as lower and mid youngblood. Head: Atraumatic, normocephalic and symmetric. Eyes: EOMs intact, no lid lag, and anicteric sclera Mouth: no lip lesions, mucus membranes moist Cardiovascular: regular rate and rhythm with normal S1S2, no murmur, positive posterior tibial pulses bilaterally, and cap refill < 2 seconds. Lungs: Respirations even, regular, and unlabored on room air. Lungs CTA bilaterally, no rhonchi, no rales, no wheezing, and no accessory muscle usage. Abdominal: soft, nontender to palpation, no guarding, no appreciable organomegaly Ext: ROM intact. No gross muscle atrophy, no edema, no contractures Neuro: Speech clear, face symmetrical and CN II-XII grossly intact with no noted focal neuro deficits Psych: Alert and oriented to person, place, time, and situation. Appropriate and pleasant affect. Assessment and Plan of Care: Bacteremia Gangrene infection of right great toe Sepsis secondary to above -Vascular surgery following, planning to take patient for right great toe amputation later today. -Infectious disease following -Continuation of IV antibiotics with Unasyn 3 g every 6 hours pending final culture and sensitivity reports. -Blood cultures preliminarily positive for group B strep 2 out of 2 cultures. We'll follow up on final culture and sensitivity reports. -Tylenol 650 mg every 6 hours as needed for mild pain/fever, Fenton 5/325 mg tablets as needed for moderate pain, and Dilaudid 0.5 mg every 3 hours as needed for severe pain. Newly diagnosed diabetes mellitus with a hemoglobin A1c of 12.7% Hyperglycemia with Pseudohyponatremia -Patient placed on glycemic protocol with NovoLog sliding scale. Patient will likely require home insulin upon discharge. Hypertension with Poorly controlled blood pressures -Patient denies history of hypertension blood pressure is elevated as high as 171/95. -Patient started on amlodipine 5 mg daily. Data and imaging reviewed: Labs were completed and reviewed. CBC showing leukocytosis with WBC count of 12.5. BMP showing mild hyponatremia sodium 131, hypochloremia with chloride of 92, and an elevated glucose of 318. Inflammatory markers were elevated with ESR of 106 and CRP of 25.5. X-ray right foot showing marked soft tissue swelling with soft gas and tiny radiopaque foreign body on the right great toe negative for osseous or intra- articular abnormality Vital signs reviewed. Blood pressure 171/83, heart rate 94, respiratory rate 18, temp 98.1F, SpO2 of 95% on room air. CODE STATUS: Full code DVT prophylaxis: Heparin Anticipated discharge date: Clinical course to determine Anticipated discharge place: Clinical course to determine Patient was seen independently by Nurse Pracitioner. This document was prepared using [employer] dictation software. Please allow for errors in automobile brakes bonder, while rare they do occur. Manny Sanchez NP rendered care for this patient independently, reviewed the findings and plan as documented in the note above. I did not physically speak with or examine the patient on this date. Objective - Vital Signs Vital signs: Vital Signs Temp 98.1 F 06/25/23 07:02 Pulse 94 06/25/23 07:02 Resp 18 06/25/23 07:02 BP 171/83 06/25/23 07:02 Pulse Ox 95 06/25/23 07:02 FiO2 Intake & Output 06/24/23 06/25/23 06/25/23 18:59 06:59 18:59 Intake Total 1640 Balance 1640 Intake: Intake, IV Titration 1640 Amount Piperacillin-Tazobactam 3 100 .375 gm In Sodium Chloride 0.9% 100 ml @ 25 mls/hr IVPB Q8HR [facility] Rx# :[id number] Sodium Chloride 0.9% 1, 1040 000 ml @ 130 mls/hr IV . Q7H42M [facility] Rx#:[id number] Vancomycin 1,750 mg In 500 Sodium Chloride 0.9% 500 ml 500 ml @ 167 mls/hr IVPB Q8H [facility] Rx#: [id number] Other: # Voids 3 - Labs CBC & Chem 7: 06/26/23 04:32 06/26/23 04:32 Labs: Abnormal Lab Results - Last 24 Hours (Table) 06/24/23 06/24/23 06/24/23 Range/Units 07:21 10:58 17:11 POC Glucose (mg/dL) 256 H 221 H (70-110) mg/dL Hemoglobin A1c 12.7 H (<=6.0) % 06/24/23 06/25/23 Range/Units 20:50 06:02 POC Glucose (mg/dL) 260 H 179 H (70-110) mg/dL Hemoglobin A1c (<=6.0) % Microbiology - Last 24 Hours (Table) 06/23/23 18:35 Blood Culture Gram Stain - Preliminary Blood 06/23/23 18:30 Blood Culture Gram Stain - Preliminary Blood
[2023-06-25] MEDS ORDERED: ONDANSETRON 4 MG/2 ML VIAL IVP ONE (17:39)
[2023-06-25] MEDS ORDERED: DEXAMETHASONE SOD PHOSPHATE 4 MG/ML 1 ML VIAL IVP ONE (17:40)
[2023-06-25] MEDS ORDERED: KETAMINE HCL IN 0.9 % NACL 50 MG/5 ML SYRINGE ONE (17:41)
[2023-06-25] MEDS ORDERED: fentaNYL (PF) 50 MCG/ML 2 ML AMP ONE (17:41)
[2023-06-25] MEDS ORDERED: MIDAZOLAM 2 MG/2 ML VIAL ONE (17:41)
[2023-06-25] MEDS ORDERED: BUPIVACAINE (PF) 0.25% 30 ML VIAL SQ ONE ×2 (17:58)
[2023-06-25 18:45] LABS: HCT 40.1 % (39.0-53.0); HGB 13.4 gm/dL (13.0-17.5); MCH 28.1 pg (25.0-35.0); MCHC 33.4 g/dL (31.0-37.0); MCV 84.2 fL (80.0-100.0); Mean Platelet Volume 7.5; Platelet Count 358 k/uL (150-450); RBC 4.76 m/uL (4.30-5.90); RDW 12.3 % (11.5-15.5); WBC 10.1 k/uL (3.8-10.6)
--- NOTE | 2023-06-25 19:33 | P.PN ---
Subjective Progress Note Date: 06/25/23 Principal diagnosis: Reason for follow-up is right big toe diabetic foot infection with osteomyelitis Patient is a 42-year-old male with no significant past medical history presenting to the ER for a evaluation of the right big toe swelling and redness, patient with a newly diagnosed diabetes mellitus has been diagnosed with the diabetic foot infection along with strep bacteremia. On today's evaluation that is 06/25/2023, the patient remains to be afebrile, the patient is breathing comfortably on room air and denies any shortness of breath, the patient denies any chest pain, no significant cough or sputum production, patient denies nausea/vomiting /diarrhea and no abdominal pain, denies any worsening pain to the right big toe Patient white count normalized to 10.1, creatinine 0.6, blood culture with Streptococcus agalactiae Objective - Vital Signs Vital signs: Vital Signs Temp 98.1 F 06/25/23 07:02 Pulse 94 06/25/23 07:02 Resp 18 06/25/23 07:02 BP 171/83 06/25/23 07:02 Pulse Ox 95 06/25/23 07:02 FiO2 Intake & Output 06/24/23 06/25/23 06/25/23 18:59 06:59 18:59 Intake Total 1640 Balance 1640 Intake: Intake, IV Titration 1640 Amount Piperacillin-Tazobactam 3 100 .375 gm In Sodium Chloride 0.9% 100 ml @ 25 mls/hr IVPB Q8HR [facility] Rx# :[id number] Sodium Chloride 0.9% 1, 1040 000 ml @ 130 mls/hr IV . Q7H42M [facility] Rx#:[id number] Vancomycin 1,750 mg In 500 Sodium Chloride 0.9% 500 ml 500 ml @ 167 mls/hr IVPB Q8H [facility] Rx#: [id number] Other: # Voids 3 - Exam GENERAL DESCRIPTION: A middle-age male lying in bed in no distress RESPIRATORY SYSTEM: Unlabored breathing , clear to auscultation anteriorly HEART: S1 S2 regular rate and rhythm , ABDOMEN: Soft , no tenderness EXTREMITIES: Right big toe is currently dressed minimal drainage on the dressing - Labs CBC & Chem 7: 06/25/23 18:17 06/25/23 04:26 Labs: Abnormal Lab Results - Last 24 Hours (Table) 06/24/23 06/24/2323 Range/Units 07:21 17:11 20:50 WBC (4.50-10.00) X 10*3/uL Hgb (13.0-17.0) g/dL Hct (39.6-50.0) % ESR (0-15) mm/Hr Anion Gap (4.00-12.00) mmol/L BUN (9.0-27.0) mg/dL Glucose (70-110) mg/dL POC Glucose (mg/dL) 221 H 260 H (70-110) mg/dL Hemoglobin A1c 12.7 H (<=6.0) % Calcium (8.7-10.3) mg/dL Alkaline Phosphatase (41-126) U/L C-Reactive Protein (0.00-0.80) mg/dL Total Protein (6.2-8.2) g/dL Albumin (3.8-4.9) g/dL Albumin/Globulin Ratio (1.60-3.17) Ratio HDL Cholesterol (40.00-60.00) mg/dL 06/25/23 06/25/23 06/25/23 Range/Units 04:26 04:26 06:02 WBC 10.68 H (4.50-10.00) X 10*3/uL Hgb 12.5 L (13.0-17.0) g/dL Hct 36.6 L (39.6-50.0) % ESR 76 H (0-15) mm/Hr Anion Gap 12.90 H (4.00-12.00) mmol/L BUN 8.2 L (9.0-27.0) mg/dL Glucose 195 H (70-110) mg/dL POC Glucose (mg/dL) 179 H (70-110) mg/dL Hemoglobin A1c (<=6.0) % Calcium 8.3 L (8.7-10.3) mg/dL Alkaline Phosphatase 136 H (41-126) U/L C-Reactive Protein 13.90 H (0.00-0.80) mg/dL Total Protein 5.4 L (6.2-8.2) g/dL Albumin 2.8 L (3.8-4.9) g/dL Albumin/Globulin Ratio 1.08 L (1.60-3.17) Ratio HDL Cholesterol 23.80 L (40.00-60.00) mg/dL 06/25/23 Range/Units 11:30 WBC (4.50-10.00) X 10*3/uL Hgb (13.0-17.0) g/dL Hct (39.6-50.0) % ESR (0-15) mm/Hr Anion Gap (4.00-12.00) mmol/L BUN (9.0-27.0) mg/dL Glucose (70-110) mg/dL POC Glucose (mg/dL) 184 H (70-110) mg/dL Hemoglobin A1c (<=6.0) % Calcium (8.7-10.3) mg/dL Alkaline Phosphatase (41-126) U/L C-Reactive Protein (0.00-0.80) mg/dL Total Protein (6.2-8.2) g/dL Albumin (3.8-4.9) g/dL Albumin/Globulin Ratio (1.60-3.17) Ratio HDL Cholesterol (40.00-60.00) mg/dL Microbiology - Last 24 Hours (Table) 06/23/23 18:30 Blood Culture Gram Stain - Preliminary Blood Blood Culture - Preliminary Strep agalactiae - (group b) 06/23/23 18:35 Blood Culture Gram Stain - Preliminary Blood Blood Culture - Preliminary Strep agalactiae - (group b) Assessment and Plan (1) Streptococcal bacteremia Current Visit: Yes Status: Acute Code(s): R78.81 - BACTEREMIA; B95.5 - UNSP STREPTOCOCCUS THE CAUSE OF DISEASES [facility] SNOMED Code(s): 921272477099 (2) Diabetic infection of right foot Current Visit: Yes Status: Acute Code(s): E11.628 - TYPE 2 DIABETES MELLITUS WITH OTHER SKIN COMPLICATIONS; L08.9 - LOCAL INFECTION OF THE SKIN AND SUBCUTANEOUS TISSUE, UNSP SNOMED Code(s): 76977967 (3) Wet gangrene Current Visit: Yes Status: Acute Code(s): I96 - GANGRENE, NOT ELSEWHERE CLASSIFIED SNOMED Code(s): 406986457 Plan: 1patient presented to hospital with sepsis in this patient who did have fever elevated white count is also likely her right big toe diabetic foot infection in this patient with evidence of significant swelling and gas formation likely related to the polymicrobial melissa usually associated with diabetic foot infecti on 2-positive blood culture with Streptococcus agalactiae likely due to right big toe diabetic foot infection 3-blood cultures to be repeated document clearance of bacteremia 4Await debridement and deep cultures this afternoon 5-patient to continue with Unasyn 3 g every 6 hours to continue, and monitor clinical course closely Dictation was produced using [employer] dictation software. please excuse any grammatical, word or spelling errors. Time with Patient: Less than 30
--- NOTE | 2023-06-25 19:45 | P.OP ---
Date of Procedure: 06/25/23 Description of Procedure: DATE OF SERVICE: SURGEON: Brandy Vicente DO BLOCK CABLEMAN: None PREOPERATIVE DIAGNOSIS: Right great toe diabetic foot ulcer and infection POSTOPERATIVE DIAGNOSIS: Same OPERATION: Right great toe amputation. ANESTHESIA: Sedation with local ESTIMATED BLOOD LOSS: 100 mL SPECIMENS REMOVED: Right great toe for disposal COMPLICATIONS: None DESCRIPTION OF PROCEDURE: This patient is a 42-year-old male with diabetes who has had an area of wound on his right great toe and subsequently developed more bulbous appearing discoloration. On images workup is found to have infection of his toe and given the look and appearance with. Drainage was recommended he undergo a great toe amputation. Risks and benefits were discussed. He seemingly understood and was unable to proceed. The patient was brought to the operating room under local IV sedation and ring block was performed, and a circular incision was made at the base of the proximal phalanx extending on the medial portion of the foot, deepened through the skin, fat, and tendons. Tendons were divided prior to plantar and dorsal aspect of the great toe. After that, proximal phalanx was dislocated from the metatarsal joint. The metatarsal head was then transected with the bone cutters. Hemostasis was well controlled with electrocautery and incision was approximated with 3-0 Vicryl and 20 nylon interrupted suture. With an area left open at the lateral portion of the wound. Dressing applied. The patient tolerated the procedure well.
[2023-06-25 20:59] LABS: Glucose,Whole Blood 227 mg/dL (70-110)
[2023-06-26] MEDS: AMPICILLIN-SULBACTAM 3 GM in SODIUM CHLORIDE 0.9% 100 ML IVPB SCH ×4 (02:33→20:26)
[2023-06-26] MEDS: oxyCODONE-APAP 5-325MG 1 EACH TAB PO PRN ×2 (02:35→11:52)
[2023-06-26] MEDS: SODIUM CHLORIDE 0.9% 1,000 ML IV SCH ×4 (02:39→23:47)
[2023-06-26 05:59] LABS: Glucose,Whole Blood 305 mg/dL (70-110)
[2023-06-26] MEDS: INSULIN ASPART (NovoLOG) 100 UNIT/ML VIAL SQ SCH ×4 (06:19→20:26)
[2023-06-26] MEDS: amLODIPine 5 MG TAB PO SCH (07:59)
[2023-06-26] MEDS: HEPARIN SODIUM,PORCINE 5,000 UNIT/ML 1 ML VIAL SQ SCH ×3 (07:59→23:43)
[2023-06-26 08:37] LABS: HCT 40.1 % (39.6-50.0); HGB 13.5 g/dL (13.0-17.0); MCH 27.8 pg (27.0-32.0); MCHC 33.7 g/dL (32.0-37.0); MCV 82.5 FL (80.0-97.0); NRBC Per 100 WBC 0 X 10*3/uL (0.00-0.01); Platelet Count 423 X 10*3/uL (140-440); RBC 4.86 X 10*6/uL (4.40-5.60); RDW 12.1 % (11.5-14.5); WBC 9.12 X 10*3/uL (4.50-10.00)
[2023-06-26 08:53] LABS: ALT 18 U/L (10-49); AST 11 U/L (14-35); Albumin 2.8 g/dL (3.8-4.9); Albumin/Globulin Ratio 0.97 Ratio (1.60-3.17); Alkaline Phosphatase 123 U/L (41-126); BUN/Creat Ratio 17.33 Ratio (12.00-20.00); Blood Urea Nitrogen 10.4 mg/dL (9.0-27.0); Calcium 8.6 mg/dL (8.7-10.3); Carbon Dioxide 20.7 mmol/L (21.6-31.8); Chloride 102 mmol/L (96-109); Globulin 2.9 g/dL (1.6-3.3); Glucose 319 mg/dL (70-110); Potassium 4.6 mmol/L (3.5-5.5); Sodium 139 mmol/L (135-145); Total Bilirubin 0.3 mg/dL (0.3-1.2); Total Protein 5.7 g/dL (6.2-8.2)
[2023-06-26 08:57] LABS: Erythrocyte Sedimentation Rate 90 mm/Hr (0-15)
[2023-06-26 11:32] LABS: Glucose,Whole Blood 246 mg/dL (70-110)
[2023-06-26 14:08] VITALS: BMI 36.9
--- NOTE | 2023-06-26 14:55 | P.PN ---
Subjective Progress Note Date: 06/26/23 Hospital course: Patient is a 42-year-old male with no reported past medical history however does not follow up outpatient with a primary doctor. Patient presented to the emergency department on 06/23/23 secondary to right great toe pain and swelling. Patient was found to have significant swelling of right great toe accompanied by erythema and sloughing of skin with erythema extending up into dorsal surface of foot as well as lower and mid youngblood. He underwent full evaluation in the emergency department. Labs were completed showing leukocytosis with WBC count of 12.5. BMP showing mild hyponatremia sodium 131, hypochloremia with chloride of 92, and an elevated glucose of 318. Inflammatory markers were elevated with ESR of 106 and CRP of 25.5. X-ray right foot showing marked soft tissue swelling with soft gas and tiny radiopaque foreign body on the right great toe negative for osseous or intra-articular abnormality. Patient admitted under services with consultation to vascular surgery and infectious disease. Physical exam: Patient day 1 postop right great toe amputation secondary to gangrene infection. Patient currently resting comfortably and denies having any complaints. Patient reports mild pain but it is currently controlled. Patient denies having any questions, needs, or complaints at this time. General: non toxic, no distress, appears at stated age Derm: warm, dry. Head: atraumatic, normocephalic, symmetric Eyes: EOMI, no lid lag, anicteric sclera Mouth: no lip lesion, mucus membranes moist Cardiovascular: S1S2 reg, no murmur, positive posterior tibial pulse bilateral, Lungs: CTA bilateral, no rhonchi, no rales , no accessory muscle use Abdominal: soft, nontender to palpation, no guarding, no appreciable organomegaly Ext: no gross muscle atrophy, no edema, no contractures. Postsurgical dressing in place to right foot. Neuro: CN II-XI grossly intact, no focal neuro deficits Psych: Alert, oriented, appropriate affect Assessment and Plan of Care: Bacteremia, group B strep Gangrene infection of right great toe status post right great toe amputation 06/25/23 Sepsis secondary to above -Vascular surgery following, took patient for right great toe amputation 06/25/23 -Infectious disease following, discussed plan of care in agreement with Estelita and recommending continuation of blood cultures until resolved. -Continuation of IV antibiotics with Unasyn 3 g every 6 hours -Blood cultures positive for group B strep 2 out of 2 cultures. -Continue symptomatic care and pain management with Tylenol 650 mg every 6 hours as needed for mild pain/fever, [place] 5/325 mg tablets as needed for moderate pain, and Dilaudid 0.5 mg every 3 hours as needed for severe pain. Newly diagnosed diabetes mellitus with a hemoglobin A1c of 12.7% Hyperglycemia with Pseudohyponatremia -Patient placed on glycemic protocol with NovoLog sliding scale and secondary to persistent hyperglycemia was also started on Levemir 15 units daily. Patient w as educated on this new diagnosis and will likely require home insulin upon discharge along with lifestyle and dietary modifications. Hypertension with Poorly controlled blood pressures -Patient denies history of hypertension but was having persistent hypertension with systolic pressures 170s. Patient was started on amlodipine 5 mg daily. Systolic pressures improving 150s. Currently blood pressure 148/79. Data and imaging reviewed: Vital signs reviewed and stable. Blood pressure 148/79, heart rate 71, respiratory rate 19, temp 97.5F, SpO2 of 97% on room air. Labs completed and reviewed. CBC unremarkable showing normal WBC count of 9.12, hemoglobin 13.5, and platelet count of 423. ESR remains elevated at 90 but improving from initial 106. BMP showing elevated anion gap at 16.30, bicarb 20.7, chloride of 102. Glucose this morning is 319. Patient started on Levemir 15 units daily in addition to his sliding scale. CODE STATUS: Full code DVT prophylaxis: Heparin Anticipated discharge date: Clinical course to determine Anticipated discharge place: Clinical course to determine Patient was seen independently by Nurse Pracitioner. This document was prepared using [employer] dictation software. Please allow for errors in rand tacker, while rare they do occur. Manny Sanchez NP rendered care for this patient independently, reviewed the findi ngs and plan as documented in the note above. I did not physically speak with or examine the patient on this date. Objective - Vital Signs Vital signs: Vital Signs Temp 97.5 F L 06/26/23 06:49 Pulse 71 06/26/23 06:49 Resp 19 06/26/23 06:49 BP 148/79 06/26/23 06:49 Pulse Ox 97 06/26/23 06:49 FiO2 Intake & Output 06/25/23 06/26/23 06/26/23 18:59 06:59 18:59 Intake Total 500 1200 Output Total 50 Balance 450 1200 Weight 113.398 kg 113.398 kg Intake: IV 500 200 Oral 1000 Output: Estimated Blood Loss 50 Other: # Voids 5 2 # Bowel Movements 1 - Labs CBC & Chem 7: 06/26/23 04:32 06/26/23 04:32 Labs: Abnormal Lab Results - Last 24 Hours (Table) 06/25/23 06/25/23 06/25/23 Range/Units 04:26 11:30 16:24 ESR 76 H (0-15) mm/Hr Carbon Dioxide (21.6-31.8) mmol/L Anion Gap (4.00-12.00) mmol/L Glucose (70-110) mg/dL POC Glucose (mg/dL) 184 H 179 H (70-110) mg/dL Calcium (8.7-10.3) mg/dL AST (14-35) U/L C-Reactive Protein (0.00-0.80) mg/dL Total Protein (6.2-8.2) g/dL Albumin (3.8-4.9) g/dL Albumin/Globulin Ratio (1.60-3.17) Ratio 06/25/23 06/25/23 06/26/23 Range/Units 17:21 20:59 04:32 ESR 90 H (0-15) mm/Hr Carbon Dioxide (21.6-31.8) mmol/L Anion Gap (4.00-12.00) mmol/L Glucose (70-110) mg/dL POC Glucose (mg/dL) 184 H 227 H (70-110) mg/dL Calcium (8.7-10.3) mg/dL AST (14-35) U/L C-Reactive Protein (0.00-0.80) mg/dL Total Protein (6.2-8.2) g/dL Albumin (3.8-4.9) g/dL Albumin/Globulin Ratio (1.60-3.17) Ratio 06/26/23 06/26/23 Range/Units 04:32 05:58 ESR (0-15) mm/Hr Carbon Dioxide 20.7 L (21.6-31.8) mmol/L Anion Gap 16.30 H (4.00-12.00) mmol/L Glucose 319 H (70-110) mg/dL POC Glucose (mg/dL) 305 H (70-110) mg/dL Calcium 8.6 L (8.7-10.3) mg/dL AST 11 L (14-35) U/L C-Reactive Protein 13.60 H (0.00-0.80) mg/dL Total Protein 5.7 L (6.2-8.2) g/dL Albumin 2.8 L (3.8-4.9) g/dL Albumin/Globulin Ratio 0.97 L (1.60-3.17) Ratio Microbiology - Last 24 Hours (Table) 06/23/23 18:30 Blood Culture Gram Stain - Preliminary Blood Blood Culture - Preliminary Strep agalactiae - (group b) 06/23/23 18:35 Blood Culture Gram Stain - Preliminary Blood Blood Culture - Preliminary Strep agalactiae - (group b)
--- NOTE | 2023-06-26 15:13 | P.PN ---
Subjective Progress Note Date: 06/26/23 Patient seen and examined today as a follow-up. He is postop day #1 for right great toe amputation. Dressing currently in place that is clean dry and intact. Pain has been well controlled. He has been afebrile today. Objective - Vital Signs Vital signs: Vital Signs Temp 97.6 F 06/26/23 12:56 Pulse 79 06/26/23 12:56 Resp 18 06/26/23 12:56 BP 157/83 06/26/23 12:56 Pulse Ox 94 L 06/26/23 12:56 FiO2 Intake & Output 06/25/23 06/26/23 06/26/23 18:59 06:59 18:59 Intake Total 500 1200 Output Total 50 Balance 450 1200 Weight 113.398 kg 113.398 kg 113.398 kg Intake: IV 500 200 Oral 1000 Output: Estimated Blood Loss 50 Other: # Voids 5 2 # Bowel Movements 1 - Exam General appearance: The patient is alert, oriented, appears in no acute distress. HET: Head is normocephalic and atraumatic. Pupils are equal and reactive. Neck: Supple. Abdomen: Soft, nondistended. Extremities: Right foot with dressing clean dry and intact with [place]. Neurological: No focal deficits. Strength and sensation are grossly intact. - Labs CBC & Chem 7: 06/26/23 04:32 06/26/23 04:32 Labs: Abnormal Lab Results - Last 24 Hours (Table) 06/25/23 06/25/23 06/25/23 Range/Units 16:24 17:21 20:59 ESR (0-15) mm/Hr Carbon Dioxide (21.6-31.8) mmol/L Anion Gap (4.00-12.00) mmol/L Glucose (70-110) mg/dL POC Glucose (mg/dL) 179 H 184 H 227 H (70-110) mg/dL Calcium (8.7-10.3) mg/dL AST (14-35) U/L C-Reactive Protein (0.00-0.80) mg/dL Total Protein (6.2-8.2) g/dL Albumin (3.8-4.9) g/dL Albumin/Globulin Ratio (1.60-3.17) Ratio 06/26/23 06/26/23 06/26/23 Range/Units 04:32 04:32 05:58 ESR 90 H (0-15) mm/Hr Carbon Dioxide 20.7 L (21.6-31.8) mmol/L Anion Gap 16.30 H (4.00-12.00) mmol/L Glucose 319 H (70-110) mg/dL POC Glucose (mg/dL) 305 H (70-110) mg/dL Calcium 8.6 L (8.7-10.3) mg/dL AST 11 L (14-35) U/L C-Reactive Protein 13.60 H (0.00-0.80) mg/dL Total Protein 5.7 L (6.2-8.2) g/dL Albumin 2.8 L (3.8-4.9) g/dL Albumin/Globulin Ratio 0.97 L (1.60-3.17) Ratio 06/26/23 Range/Units 11:31 ESR (0-15) mm/Hr Carbon Dioxide (21.6-31.8) mmol/L Anion Gap (4.00-12.00) mmol/L Glucose (70-110) mg/dL POC Glucose (mg/dL) 246 H (70-110) mg/dL Calcium (8.7-10.3) mg/dL AST (14-35) U/L C-Reactive Protein (0.00-0.80) mg/dL Total Protein (6.2-8.2) g/dL Albumin (3.8-4.9) g/dL Albumin/Globulin Ratio (1.60-3.17) Ratio Microbiology - Last 24 Hours (Table) 06/23/23 18:30 Blood Culture Gram Stain - Final Blood Blood Culture - Final Strep agalactiae - (group b) 06/23/23 18:35 Blood Culture Gram Stain - Final Blood Blood Culture - Final Strep agalactiae - (group b) Assessment and Plan Assessment: 1. Right great toe wound with foreign body status post great toe amputation 2. Osteomyelitis right great toe 3. Bacteremia 4. New onset diabetes mellitus Plan: 1. Consistent carbohydrate diet 2. Consult to PT/OT 3. Continue antibiotics per recommendations from infectious disease 4. Strict glycemic control 5. Heel walk only on right foot, postop shoe ordered 6. Will change dressing tomorrow per vascular team Thank you for this consultation, we will continue to follow. The impression and plan of care has been dictated as directed. Dr. Parham I performed a history and examination of this patient, discussed the same with the dictator. I agree with the dictator's note ,documented as a scribe. Any additional findings or plans will be noted.
[2023-06-26 16:15] LABS: Glucose,Whole Blood 272 mg/dL (70-110)
--- NOTE | 2023-06-26 16:18 | P.PN ---
Subjective Progress Note Date: 06/26/23 Principal diagnosis: Reason for follow-up is right big toe diabetic foot infection with osteomyelitis Patient is a 42-year-old male with no significant past medical history presenting to the ER for a evaluation of the right big toe swelling and redness, patient with a newly diagnosed diabetes mellitus has been diagnosed with the diabetic foot infection along with strep bacteremia. Patient is status post amputation of the right big toe completed 06/25/2023 On today's evaluation that is 06/26/2023, the patient denies any fever or any chills, the patient is breathing comfortably on room air without the need for supplemental oxygen, patient denies chest pain shortness of breath, the patient denies cough or sputum production, patient denies Abdominal pain, no suzanne sea/vomiting or diarrhea, the patient pain to the right big toe amputation site is controlled Patient white count is 9.12, creatinine 0.6, blood culture with Streptococcus agalactiae Objective - Vital Signs Vital signs: Vital Signs Temp 97.5 F L 06/26/23 06:49 Pulse 71 06/26/23 06:49 Resp 19 06/26/23 06:49 BP 148/79 06/26/23 06:49 Pulse Ox 97 06/26/23 06:49 FiO2 Intake & Output 06/25/23 06/26/23 06/26/23 18:59 06:59 18:59 Intake Total 500 1200 Output Total 50 Balance 450 1200 Weight 113.398 kg 113.398 kg Intake: IV 500 200 Oral 1000 Output: Estimated Blood Loss 50 Other: # Voids 5 2 # Bowel Movements 1 - Exam GENERAL DESCRIPTION: A middle-age male lying in bed in no distress RESPIRATORY SYSTEM: Unlabored breathing , clear to auscultation anteriorly HEART: S1 S2 regular rate and rhythm , ABDOMEN: Soft , no tenderness EXTREMITIES: Right big toe amputation site is currently dressed - Labs CBC & Chem 7: 06/26/23 04:32 06/26/23 04:32 Labs: Abnormal Lab Results - Last 24 Hours (Table) 06/25/23 06/25/23 06/25/23 Range/Units 16:24 17:21 20:59 ESR (0-15) mm/Hr Carbon Dioxide (21.6-31.8) mmol/L Anion Gap (4.00-12.00) mmol/L Glucose (70-110) mg/dL POC Glucose (mg/dL) 179 H 184 H 227 H (70-110) mg/dL Calcium (8.7-10.3) mg/dL AST (14-35) U/L C-Reactive Protein (0.00-0.80) mg/dL Total Protein (6.2-8.2) g/dL Albumin (3.8-4.9) g/dL Albumin/Globulin Ratio (1.60-3.17) Ratio 06/26/23 06/26/23 06/26/23 Range/Units 04:32 04:32 05:58 ESR 90 H (0-15) mm/Hr Carbon Dioxide 20.7 L (21.6-31.8) mmol/L Anion Gap 16.30 H (4.00-12.00) mmol/L Glucose 319 H (70-110) mg/dL POC Glucose (mg/dL) 305 H (70-110) mg/dL Calcium 8.6 L (8.7-10.3) mg/dL AST 11 L (14-35) U/L C-Reactive Protein 13.60 H (0.00-0.80) mg/dL Total Protein 5.7 L (6.2-8.2) g/dL Albumin 2.8 L (3.8-4.9) g/dL Albumin/Globulin Ratio 0.97 L (1.60-3.17) Ratio 06/26/23 Range/Units 11:31 ESR (0-15) mm/Hr Carbon Dioxide (21.6-31.8) mmol/L Anion Gap (4.00-12.00) mmol/L Glucose (70-110) mg/dL POC Glucose (mg/dL) 246 H (70-110) mg/dL Calcium (8.7-10.3) mg/dL AST (14-35) U/L C-Reactive Protein (0.00-0.80) mg/dL Total Protein (6.2-8.2) g/dL Albumin (3.8-4.9) g/dL Albumin/Globulin Ratio (1.60-3.17) Ratio Microbiology - Last 24 Hours (Table) 06/23/23 18:30 Blood Culture Gram Stain - Final Blood Blood Culture - Final Strep agalactiae - (group b) 06/23/23 18:35 Blood Culture Gram Stain - Final Blood Blood Culture - Final Strep agalactiae - (group b) Assessment and Plan (1) Streptococcal bacteremia Current Visit: Yes Status: Acute Code(s): R78.81 - BACTEREMIA; B95.5 - UNSP STREPTOCOCCUS THE CAUSE OF DISEASES [facility] SNOMED Code(s): 4910 40521758 (2) Diabetic infection of right foot Current Visit: Yes Status: Acute Code(s): E11.628 - TYPE 2 DIABETES MELLITUS WITH OTHER SKIN COMPLICATIONS; L08.9 - LOCAL INFECTION OF THE SKIN AND SUBCUTANE OUS TISSUE, UNSP SNOMED Code(s): 61365532 (3) Wet gangrene Current Visit: Yes Status: Acute Code(s): I96 - GANGRENE, NOT ELSEWHERE CLASSIFIED SNOMED Code(s): 992450318 Plan: 1patient presented to hospital with sepsis in this patient who did have fever elevated white count is also likely her right big toe diabetic foot infection in this patient with evidence of significant swelling and gas formation likely related to the polymicrobial melissa usually associated with diabetic foot infection 2-positive blood culture with Streptococcus agalactiae likely due to right big toe diabetic foot infection 3Patient is status post amputation of the right big toe 4-patient to continue with Unasyn 3 g every 6 hours and monitor clinical course closely Dictation was produced using [employer] dictation software. please excuse any grammatical, word or spelling errors. Time with Patient: Less than 30
[2023-06-26 20:17] LABS: Glucose,Whole Blood 312 mg/dL (70-110)
[2023-06-26] MEDS ORDERED: INSULIN DETEMIR (LEVEMIR) 100 UNIT/ML SYR SQ SCH (21:00)
[2023-06-26 21:19] LABS: Glucose,Whole Blood 318 mg/dL (70-110)
[2023-06-27] MEDS: AMPICILLIN-SULBACTAM 3 GM in SODIUM CHLORIDE 0.9% 100 ML IVPB SCH ×4 (00:58→20:44)
[2023-06-27 02:11] LABS: Glucose,Whole Blood 260 mg/dL (70-110)
[2023-06-27 06:35] LABS: Glucose,Whole Blood 235 mg/dL (70-110)
[2023-06-27] MEDS: oxyCODONE-APAP 5-325MG 1 EACH TAB PO PRN (06:39)
[2023-06-27] MEDS: INSULIN ASPART (NovoLOG) 100 UNIT/ML VIAL SQ SCH ×4 (06:39→20:45)
[2023-06-27] MEDS: SODIUM CHLORIDE 0.9% 1,000 ML IV SCH (08:33)
[2023-06-27] MEDS: amLODIPine 5 MG TAB PO SCH (08:33)
[2023-06-27] MEDS: HEPARIN SODIUM,PORCINE 5,000 UNIT/ML 1 ML VIAL SQ SCH ×3 (08:35→22:57)
[2023-06-27 08:36] LABS: ALT 17 U/L (10-49); AST 13 U/L (14-35); Albumin 2.6 g/dL (3.8-4.9); Albumin/Globulin Ratio 1.04 Ratio (1.60-3.17); Alkaline Phosphatase 97 U/L (41-126); Blood Urea Nitrogen 12.5 mg/dL (9.0-27.0); Calcium 8.1 mg/dL (8.7-10.3); Carbon Dioxide 25.6 mmol/L (21.6-31.8); Chloride 105 mmol/L (96-109); Globulin 2.5 g/dL (1.6-3.3); Glucose 265 mg/dL (70-110); Potassium 3.9 mmol/L (3.5-5.5); Sodium 140 mmol/L (135-145); Total Bilirubin <0.2 mg/dL (0.3-1.2); Total Protein 5.1 g/dL (6.2-8.2)
[2023-06-27 08:47] LABS: HCT 36.5 % (39.6-50.0); HGB 12.3 g/dL (13.0-17.0); MCH 27.8 pg (27.0-32.0); MCHC 33.7 g/dL (32.0-37.0); MCV 82.4 FL (80.0-97.0); Mean Platelet Volume 9.6 FL (9.5-12.2); NRBC Per 100 WBC 0 X 10*3/uL (0.00-0.01); Platelet Count 395 X 10*3/uL (140-440); RBC 4.43 X 10*6/uL (4.40-5.60); RDW 12.3 % (11.5-14.5); WBC 8.84 X 10*3/uL (4.50-10.00)
[2023-06-27 09:56] LABS: Erythrocyte Sedimentation Rate 57 mm/Hr (0-15)
[2023-06-27 11:20] LABS: Glucose,Whole Blood 196 mg/dL (70-110)
--- NOTE | 2023-06-27 15:36 | P.PN ---
Subjective Progress Note Date: 06/27/23 (delayed charting seen at 1030) Patient is a 42-year-old male with no known past medical history as he has not felt primary care physician who presented to the emergency department due to right great toe pain and swelling. Apartment he underwent an extensive evaluation. Labs were remarkable for white blood cell count of 12.5, sodium 131, glucose 318, ESR 106, CRP of 25.5. X-ray of the right foot showed marked soft tissue swelling with gas and tiny radiopaque foreign body in the right great toe. Patient was subsequently diagnosed with gangrene of the right great toe and was started on Zosyn and vancomycin. Infectious disease and vascular surgery were consulted. Patient came back with group B strep bacteremia. He underwent a right great toe amputation on 06/25/23 without any immediate postoperative complications. Patient was the escalated to Unasyn. He was also found to have new onset diabetes with A1c 12.7. Patient seen and examined at bedside. Denies any chest pain or shortness of breath. He does believe he has insurance. We have a long discussion regarding his diabetes and need for insulin at discharge. Patient is in agreement. Vital signs reviewed General: nontoxic, no distress, appears at stated age Cardiovascular: S1S2 reg, no murmur, positive posterior tibial pulse bilateral, Lungs: CTA bilateral, no rhonchi, no rales , no accessory muscle use Abdominal: soft, nontender to palpation, no guarding, no appreciable organomegaly Ext: no gross muscle atrophy, no edema b/l lower extremities, no contractures Neuro: CN II-XI grossly intact, no focal neuro deficits, right great toe amputation site with dressing in place Psych: Alert, oriented, appropriate affect Assessment/Plan: Bacteremia, group B strep Gangrene infection of right great toe status post right great toe amputation 06/25/23 Sepsis, resolved -Continue with Unasyn 3 g every 6 hours day #3 -Vascular surgery note reviewed: PT/OT, heel walk only right foot, change dressing tomorrow per vascular -Vascular surgery following, took patient for right great toe amputation 06/25/23 - Infectious disease note reviewed: Continue with Unasyn 3 g every 6 hours -Continue Tylenol 650 mg every 6 hours as needed for mild pain/fever, [place] 5/325 mg tablets as needed for moderate pain, and Dilaudid 0.5 mg every 3 hours as needed for severe pain. Newly diagnosed diabetes mellitus with a hemoglobin A1c of 12.7% with Hyperglycemia Pseudohyponatremia, resolved - SSI, follow BS - WIll need insulin on discharge - Levemir increased to 20 units at night Elevated blood pressures without prior diagnosis of hypertension -Increase Norvasc to 10 mg daily, follow blood pressures Imaging: None new Data Review: Labs from today include CBC, basic metabolic profile, AST, ALT, ESR, and CRP which are remarkable for hemoglobin 12.3, blood sugar 196, CRP 5.7, ESR 57 -I did complete pts FMLA and short-term disability paperwork. Copies are in the chart. DVT prophylaxis: Heparin Anticipated discharge date: 24-[address]: home This dictation was prepared using [employer] voice recognition software. Though every attempt is made to correct errors during dictation some may still exist. Objective - Vital Signs Vital signs: Vital Signs Temp 97.9 F 06/27/23 14:00 Pulse 72 06/27/23 14:00 Resp 18 06/27/23 14:00 BP 143/80 06/27/23 14:00 Pulse Ox 97 06/27/23 14:00 FiO2 Intake & Output 06/26/23 06/27/23 06/27/23 18:59 06:59 18:59 Intake Total 1560 Balance 1560 Weight 113.398 kg Intake: Intake, IV Titration 1560 Amount Sodium Chloride 0.9% 1, 1560 000 ml @ 130 mls/hr IV . [id number] [facility] Rx#:[id number] Other: # Voids 1 - Labs CBC & Chem 7: 06/27/23 05:11 06/27/23 05:11 Labs: Abnormal Lab Results - Last 24 Hours (Table) 06/26/23 06/26/23 06/26/23 Range/Units 16:15 20:15 21:18 Hgb (13.0-17.0) g/dL Hct (39.6-50.0) % ESR (0-15) mm/Hr Creatinine (0.6-1.5) mg/dL BUN/Creatinine Ratio (12.00-20.00) Ratio Glucose (70-110) mg/dL POC Glucose (mg/dL) 272 H 312 H 318 H (70-110) mg/dL Calcium (8.7-10.3) mg/dL Total Bilirubin (0.3-1.2) mg/dL AST (14-35) U/L C-Reactive Protein (0.00-0.80) mg/dL Total Protein (6.2-8.2) g/dL Albumin (3.8-4.9) g/dL Albumin/Globulin Ratio (1.60-3.17) Ratio 06/27/23 06/27/23 06/27/23 Range/Units 02:10 05:11 05:11 Hgb 12.3 L (13.0-17.0) g/dL Hct 36.5 L (39.6-50.0) % ESR 57 H (0-15) mm/Hr Creatinine 0.5 L (0.6-1.5) mg/dL BUN/Creatinine Ratio 25.00 H (12.00-20.00) Ratio Glucose 265 H (70-110) mg/dL POC Glucose (mg/dL) 260 H (70-110) mg/dL Calcium 8.1 L (8.7-10.3) mg/dL Total Bilirubin <0.2 L (0.3-1.2) mg/dL AST 13 L (14-35) U/L C-Reactive Protein 5.70 H (0.00-0.80) mg/dL Total Protein 5.1 L (6.2-8.2) g/dL Albumin 2.6 L (3.8-4.9) g/dL Albumin/Globulin Ratio 1.04 L (1.60-3.17) Ratio 06/27/23 06/27/23 Range/Units 06:34 11:19 Hgb (13.0-17.0) g/dL Hct (39.6-50.0) % ESR (0-15) mm/Hr Creatinine (0.6-1.5) mg/dL BUN/Creatinine Ratio (12.00-20.00) Ratio Glucose (70-110) mg/dL POC Glucose (mg/dL) 235 H 196 H (70-110) mg/dL Calcium (8.7-10.3) mg/dL Total Bilirubin (0.3-1.2) mg/dL AST (14-35) U/L C-Reactive Protein (0.00-0.80) mg/dL Total Protein (6.2-8.2) g/dL Albumin (3.8-4.9) g/dL Albumin/Globulin Ratio (1.60-3.17) Ratio Microbiology - Last 24 Hours (Table) 06/23/23 18:30 Blood Culture Gram Stain - Final Blood Blood Culture - Final Strep agalactiae - (group b) 06/23/23 18:35 Blood Culture Gram Stain - Final Blood Blood Culture - Final Strep agalactiae - (group b)
--- NOTE | 2023-06-27 16:05 | P.PN ---
Subjective Progress Note Date: 06/27/23 Principal diagnosis: Osteomyelitis right great toe Patient is seen and examined today as a follow-up. He is postop day #2 for right great toe amputation. He states pain is well managed. He remains on IV antibiotics. Infectious disease is following. He has been up and ambulating on the right heel only. Objective - Vital Signs Vital signs: Vital Signs Temp 97.4 F L 06/27/23 06:44 Pulse 71 06/27/23 06:44 Resp 18 06/27/23 06:44 BP 160/89 06/27/23 06:44 Pulse Ox 83 L 06/27/23 06:44 FiO2 Intake & Output 06/26/23 06/27/23 06/27/23 18:59 06:59 18:59 Intake Total 1560 Balance 1560 Weight 113.398 kg Intake: Intake, IV Titration 1560 Amount Sodium Chloride 0.9% 1, 1560 000 ml @ 130 mls/hr IV . Q7H42M [facility] Rx#:[id number] Other: # Voids 1 - Exam General appearance: The patient is alert, oriented, appears in no acute distress. HET: Head is normocephalic and atraumatic. Pupils are equal and reactive. Neck: Supple. Abdomen: Soft, nondistended. Extremities: Right great toe amputation site well approximated with sutures with medial aspect open without any significant drainage. Erythema to dorsal aspect of foot improving. Dressing changed. Neurological: No focal deficits. Strength and sensation are grossly intact. - Labs CBC & Chem 7: 06/27/23 05:11 06/27/23 05:11 Labs: Abnormal Lab Results - Last 24 Hours (Table) 06/26/23 06/26/23 06/26/23 Range/Units 04:32 04:32 11:31 ESR 90 H (0-15) mm/Hr Carbon Dioxide 20.7 L (21.6-31.8) mmol/L Anion Gap 16.30 H (4.00-12.00) mmol/L Glucose 319 H (70-110) mg/dL POC Glucose (mg/dL) 246 H (70-110) mg/dL Calcium 8.6 L (8.7-10.3) mg/dL AST 11 L (14-35) U/L C-Reactive Protein 13.60 H (0.00-0.80) mg/dL Total Protein 5.7 L (6.2-8.2) g/dL Albumin 2.8 L (3.8-4.9) g/dL Albumin/Globulin Ratio 0.97 L (1.60-3.17) Ratio 06/26/23 06/26/23 06/26/23 Range/Units 16:15 20:15 21:18 ESR (0-15) mm/Hr Carbon Dioxide (21.6-31.8) mmol/L Anion Gap (4.00-12.00) mmol/L Glucose (70-110) mg/dL POC Glucose (mg/dL) 272 H 312 H 318 H (70-110) mg/dL Calcium (8.7-10.3) mg/dL AST (14-35) U/L C-Reactive Protein (0.00-0.80) mg/dL Total Protein (6.2-8.2) g/dL Albumin (3.8-4.9) g/dL Albumin/Globulin Ratio (1.60-3.17) Ratio 06/27/23 06/27/23 Range/Units 02:10 06:34 ESR (0-15) mm/Hr Carbon Dioxide (21.6-31.8) mmol/L Anion Gap (4.00-12.00) mmol/L Glucose (70-110) mg/dL POC Glucose (mg/dL) 260 H 235 H (70-110) mg/dL Calcium (8.7-10.3) mg/dL AST (14-35) U/L C-Reactive Protein (0.00-0.80) mg/dL Total Protein (6.2-8.2) g/dL Albumin (3.8-4.9) g/dL Albumin/Globulin Ratio (1.60-3.17) Ratio Microbiology - Last 24 Hours (Table) 06/23/23 18:30 Blood Culture Gram Stain - Final Blood Blood Culture - Final Strep agalactiae - (group b) 06/23/23 18:35 Blood Culture Gram Stain - Final Blood Blood Culture - Final Strep agalactiae - (group b) Assessment and Plan Assessment: 1. Right great toe wound with foreign body status post great toe amputation 2. Osteomyelitis right great toe 3. Bacteremia 4. New onset diabetes mellitus Plan: 1. Consistent carbohydrate diet 2. Consult to PT/OT 3. Continue antibiotics per recommendations from infectious disease 4. Strict glycemic control 5. Heel walk only on right foot 6. Recommend postop shoe to be worn when ambulating 7. Wet-to-dry dressing change daily to right great toe amputation site Thank you for this consultation, we will continue to follow. The impression and plan of care has been dictated as directed. Dr. Cruz I performed a history and examination of this patient, discussed the same with the dictator. I agree with the dictator's note ,documented as a scribe. Any additional findings or plans will be noted.
[2023-06-27 16:59] LABS: Glucose,Whole Blood 205 mg/dL (70-110)
[2023-06-27 20:36] LABS: Glucose,Whole Blood 228 mg/dL (70-110)
[2023-06-27] MEDS: INSULIN DETEMIR (LEVEMIR) 100 UNIT/ML SYR SQ SCH (20:45)
[2023-06-28] MEDS: AMPICILLIN-SULBACTAM 3 GM in SODIUM CHLORIDE 0.9% 100 ML IVPB SCH ×4 (01:25→22:12)
[2023-06-28 06:07] LABS: Glucose,Whole Blood 182 mg/dL (70-110)
[2023-06-28] MEDS: INSULIN ASPART (NovoLOG) 100 UNIT/ML VIAL SQ SCH ×4 (06:18→22:13)
[2023-06-28] MEDS: HEPARIN SODIUM,PORCINE 5,000 UNIT/ML 1 ML VIAL SQ SCH ×3 (09:18→23:36)
[2023-06-28] MEDS: amLODIPine 10 MG TAB PO SCH (09:18)
[2023-06-28 11:31] LABS: Glucose,Whole Blood 156 mg/dL (70-110)
--- NOTE | 2023-06-28 13:59 | P.PN ---
Subjective Progress Note Date: 06/28/23 Principal diagnosis: Osteomyelitis right great toe Should seen and examined today as a follow-up. He is without any acute complaints. Awaiting recommendations from infectious disease for outpatient antibiotics. He has been afebrile. We'll plan for home health care for dressi ng changes. Objective - Vital Signs Vital signs: Vital Signs Temp 98.1 F 06/28/23 07:15 Pulse 77 06/28/23 07:15 Resp 17 06/28/23 07:15 BP 151/90 06/28/23 07:15 Pulse Ox 96 06/28/23 07:15 FiO2 Intake & Output 06/27/23 06/28/23 06/28/23 18:59 06:59 18:59 Other: # Voids 5 5 # Bowel Movements 1 - Exam General appearance: The patient is alert, oriented, appears in no acute distress. HET: Head is normocephalic and atraumatic. Pupils are equal and reactive. Neck: Supple. Abdomen: Soft, nondistended. Extremities: Right foot with dressing clean dry and intact. Neurological: No focal deficits. Strength and sensation are grossly intact. - Labs CBC & Chem 7: 06/27/23 05:11 06/27/23 05:11 Labs: Abnormal Lab Results - Last 24 Hours (Table) 06/27/23 06/27/23 06/27/23 Range/Units 05:11 11:19 16:58 ESR 57 H (0-15) mm/Hr POC Glucose (mg/dL) 196 H 205 H (70-110) mg/dL 06/27/23 06/28/23 Range/Units 20:35 06:06 ESR (0-15) mm/Hr POC Glucose (mg/dL) 228 H 182 H (70-110) mg/dL Assessment and Plan Assessment: 1. Right great toe wound with foreign body status post great toe amputation 2. Osteomyelitis right great toe 3. Bacteremia 4. New onset diabetes mellitus Plan: 1. Consistent carbohydrate diet 2. Consult to PT/OT 3. Continue antibiotics per recommendations from infectious disease 4. Strict glycemic control 5. Heel walk only on right foot 6. Recommend postop shoe to be worn when ambulating 7. Wet-to-dry dressing change daily to right great toe amputation site while in hospital, then follow dressing change instructions for home 8. Patient is cleared for discharge from vascular surgery. Recommend home health care for dressing changes. Thank you for this consultation, we will sign off at this time. The impression and plan of care has been dictated as directed. Dr. Cruz I performed a history and examination of this patient, discussed the same with the dictator. I agree with the dictator's note ,documented as a scribe. Any additional findings or plans will be noted.
--- NOTE | 2023-06-28 16:35 | P.PN ---
Subjective Progress Note Date: 06/28/23 ([facility] charting seen at 1105) Patient is a 42-year-old male with no known past medical history as he has not seen a primary care physician who presented to the emergency department due to right great toe pain and swelling. In the ED he underwent an extensive evaluation. Labs were remarkable for white blood cell count of 12.5, sodium 131, glucose 318, ESR 106, CRP of 25.5. X-ray of the right foot showed marked soft tissue swelling with gas and tiny radiopaque foreign body in the right great toe. Patient was subsequently diagnosed with gangrene of the right great toe and was started on Zosyn and vancomycin. Infectious disease and vascular surgery were consulted. Patient came back with group B strep bacteremia. He underwent a right great toe amputation on 06/25/23 without any immediate postoperative complications. Patient antibiotics were descalated to Unasyn. He was also found to have new onset diabetes with A1c 12.7. Patient seen and examined at bedside. He is overall feeling well today. He denies any nausea, vomiting, or diarrhea. He does believe he has at home. Vital signs reviewed General: nontoxic, no distress, appears at stated age Cardiovascular: S1S2 reg, no murmur, positive posterior tibial pulse bilateral, Lungs: CTA bilateral, no rhonchi, no rales , no accessory muscle use Abdominal: soft, nontender to palpation, no guarding, no appreciable organomegaly Ext: no gross muscle atrophy, no edema b/l lower extremities, no contractures Neuro: CN II-XI grossly intact, no focal neuro deficits, right great toe amputation site with dressing in place Psych: Alert, oriented, appropriate affect Assessment/Plan: Bacteremia, group B strep Gangrene infection of right great toe status post right great toe amputation 06/25/23 Sepsis, resolved -Continue with Unasyn 3 g every 6 hours day #4 -Await further infectious disease recommendations regarding need for PICC line and IV antibiotics. On discharge. -Vascular recs: Heel walk only, cleared for discharge. -Continue Tylenol 650 mg every 6 hours as needed for mild pain/fever, [place] 5/325 mg tablets as needed for moderate pain, and Dilaudid 0.5 mg every 3 hours as needed for severe pain. Newly diagnosed diabetes mellitus with a hemoglobin A1c of 12.7% with Hypergly cemia Pseudohyponatremia, resolved - SSI, follow BS - WIll need insulin on discharge - Levemir 20 units at night Elevated blood pressures without prior diagnosis of hypertension -Norvasc 10 mg daily, follow blood pressures Imaging: None new Data Review: Blood sugars reviewed from today show an fasting of 182, blood sugar at lunch 156. DVT prophylaxis: Heparin Anticipated discharge date: 24-[address]: home This dictation was prepared using [employer] voice recognition software. Though every attempt is made to correct errors during dictation some may still exist. Objective - Vital Signs Vital signs: Vital Signs Temp 98.1 F 06/28/23 07:15 Pulse 77 06/28/23 07:15 Resp 17 06/28/23 07:15 BP 151/90 06/28/23 07:15 Pulse Ox 96 06/28/23 07:15 FiO2 Intake & Output 06/27/23 06/28/23 06/28/23 18:59 06:59 18:59 Intake Total 200 Balance 200 Intake: Oral 200 Other: # Voids 5 5 # Bowel Movements 1 - Labs CBC & Chem 7: 06/27/23 05:11 06/27/23 05:11 Labs: Abnormal Lab Results - Last 24 Hours (Table) 06/27/23 06/27/23 06/28/23 Range/Units 16:58 20:35 06:06 POC Glucose (mg/dL) 205 H 228 H 182 H (70-110) mg/dL 06/28/23 Range/Units 11:22 POC Glucose (mg/dL) 156 H (70-110) mg/dL
[2023-06-28 17:10] LABS: Glucose,Whole Blood 279 mg/dL (70-110)
--- NOTE | 2023-06-28 17:23 | P.PN ---
Subjective Progress Note Date: 06/27/23 Principal diagnosis: Reason for follow-up is right big toe diabetic foot infection with osteomyelitis Patient is a 42-year-old male with no significant past medical history presenting to the ER for a evaluation of the right big toe swelling and redness, patient with a newly diagnosed diabetes mellitus has been diagnosed with the diabetic foot infection along with strep bacteremia. Patient is status post amputation of the right big toe completed 06/25/2023 On today's evaluation that is 06/27/2023, the patient remains to be febrile, the patient is breathing comfortably on room air. The patient denies having any shortness of breath no chest pain or cough, patient denies Abdominal pain, no nausea/vomiting or diarrhea, the patient pain to the right big toe amputation site is controlled Patient white count is 8.84 and a creatinine of 0.5, blood culture with Str eptococcus agalactiae Objective - Vital Signs Vital signs: Vital Signs Temp 97.4 F L 06/27/23 06:44 Pulse 71 06/27/23 06:44 Resp 18 06/27/23 06:44 BP 160/89 06/27/23 06:44 Pulse Ox 96 06/27/23 08:32 FiO2 Intake & Output 06/26/23 06/27/23 06/27/23 18:59 06:59 18:59 Intake Total 1560 Balance 1560 Weight 113.398 kg Intake: Intake, IV Titration 1560 Amount Sodium Chloride 0.9% 1, 1560 000 ml @ 130 mls/hr IV . Q7H42M [facility] Rx#:[id number] Other: # Voids 1 - Exam GENERAL DESCRIPTION: A middle-age male lying in bed in no distress RESPIRATORY SYSTEM: Unlabored breathing , clear to auscultation anteriorly HEART: S1 S2 regular rate and rhythm , ABDOMEN: Soft , no tenderness EXTREMITIES: Right big toe amputation site is currently dressed - Labs CBC & Chem 7: 06/27/23 05:11 06/27/23 05:11 Labs: Abnormal Lab Results - Last 24 Hours (Table) 06/26/23 06/26/23 06/26/23 Range/Units 16:15 20:15 21:18 Hgb (13.0-17.0) g/dL Hct (39.6-50.0) % ESR (0-15) mm/Hr Creatinine (0.6-1.5) mg/dL BUN/Creatinine Ratio (12.00-20.00) Ratio Glucose (70-110) mg/dL POC Glucose (mg/dL) 272 H 312 H 318 H (70-110) mg/dL Calcium (8.7-10.3) mg/dL Total Bilirubin (0.3-1.2) mg/dL AST (14-35) U/L C-Reactive Protein (0.00-0.80) mg/dL Total Protein (6.2-8.2) g/dL Albumin (3.8-4.9) g/dL Albumin/Globulin Ratio (1.60-3.17) Ratio 06/27/23 06/27/23 06/27/23 Range/Units 02:10 05:11 05:11 Hgb 12.3 L (13.0-17.0) g/dL Hct 36.5 L (39.6-50.0) % ESR 57 H (0-15) mm/Hr Creatinine 0.5 L (0.6-1.5) mg/dL BUN/Creatinine Ratio 25.00 H (12.00-20.00) Ratio Glucose 265 H (70-110) mg/dL POC Glucose (mg/dL) 260 H (70-110) mg/dL Calcium 8.1 L (8.7-10.3) mg/dL Total Bilirubin <0.2 L (0.3-1.2) mg/dL AST 13 L (14-35) U/L C-Reactive Protein 5.70 H (0.00-0.80) mg/dL Total Protein 5.1 L (6.2-8.2) g/dL Albumin 2.6 L (3.8-4.9) g/dL Albumin/Globulin Ratio 1.04 L (1.60-3.17) Ratio 06/27/23 06/27/23 Range/Units 06:34 11:19 Hgb (13.0-17.0) g/dL Hct (39.6-50.0) % ESR (0-15) mm/Hr Creatinine (0.6-1.5) mg/dL BUN/Creatinine Ratio (12.00-20.00) Ratio Glucose (70-110) mg/dL POC Glucose (mg/dL) 235 H 196 H (70-110) mg/dL Calcium (8.7-10.3) mg/dL Total Bilirubin (0.3-1.2) mg/dL AST (14-35) U/L C-Reactive Protein (0.00-0.80) mg/dL Total Protein (6.2-8.2) g/dL Albumin (3.8-4.9) g/dL Albumin/Globulin Ratio (1.60-3.17) Ratio Microbiology - Last 24 Hours (Table) 06/23/23 18:30 Blood Culture Gram Stain - Final Blood Blood Culture - Final Strep agalactiae - (group b) 06/23/23 18:35 Blood Culture Gram Stain - Final Blood Blood Culture - Final Strep agalactiae - (group b) Assessment and Plan (1) Streptococcal bacteremia Current Visit: Yes Status: Acute Code(s): R78.81 - BACTEREMIA; B95.5 - UNSP STREPTOCOCCUS THE CAUSE OF DISEASES [facility]SD [facility] SNOMED Code(s): 120653287981 (2) Diabetic infection of right foot Current Visit: Yes Status: Acute Code(s): E11.628 - TYPE 2 DIABETES MELLITUS WITH OTHER SKIN COMPLICATIONS; L08.9 - LOCAL INFECTION OF THE SKIN AND SUBCUTANEOUS TISSUE, UNSP SNOMED Code(s): 71332944 (3) Wet gangrene Current Visit: Yes Status: Acute Code(s): I96 - GANGRENE, NOT ELSEWHERE CLASSIFIED SNOMED Code(s): 891626353 Plan: 1patient presented to hospital with sepsis in this patient who did have fever elevated white count is also likely her right big toe diabetic foot infection in this patient with evidence of significant swelling and gas formation likely related to the polymicrobial melissa usually associated with diabetic foot infection 2-positive blood culture with Streptococcus agalactiae likely due to right big toe diabetic foot infection 3Patient is status post amputation of the right big toe 4-patient to continue with Unasyn 3 g every 6 hours , patient will need outp atient IV antibiotics on discharge Dictation was produced using [employer] dictation software. please excuse any grammatical, word or spelling errors. Time with Patient: Less than 30
--- NOTE | 2023-06-28 17:24 | P.PN ---
Subjective Progress Note Date: 06/28/23 Principal diagnosis: Reason for follow-up is right big toe diabetic foot infection with osteomyelitis Patient is a 42-year-old male with no significant past medical history presenting to the ER for a evaluation of the right big toe swelling and redness, patient with a newly diagnosed diabetes mellitus has been diagnosed with the diabetic foot infection along with strep bacteremia. Patient is status post amputation of the right big toe completed 06/25/2023 On today's evaluation that is 06/28/2023, the patient denies any fever or any chills, the patient is breathing comfortably on room air and denies any shortness of breath, the patient denies any chest pain, no cough or sputum production, patient denies nausea/vomiting /diarrhea and no abdominal pain, patient denies any pain to the right big toe amputation site Patient white count is 8.84 and a creatinine of 0.5 as of 06/27/2023, blood culture with Streptococcus agalactiae Objective - Vital Signs Vital signs: Vital Signs Temp 98.1 F 06/28/23 07:15 Pulse 77 06/28/23 07:15 Resp 17 06/28/23 07:15 BP 151/90 06/28/23 07:15 Pulse Ox 96 06/28/23 07:15 FiO2 Intake & Output 06/27/23 06/28/23 06/28/23 18:59 06:59 18:59 Intake Total 200 Balance 200 Intake: Oral 200 Other: # Voids 5 5 # Bowel Movements 1 - Exam GENERAL DESCRIPTION: A middle-age male lying in bed in no distress RESPIRATORY SYSTEM: Unlabored breathing , clear to auscultation anteriorly HEART: S1 S2 regular rate and rhythm , ABDOMEN: Soft , no tenderness EXTREMITIES: Right big toe amputation site wound is partially open minimal surrounding swelling no drainage - Labs CBC & Chem 7: 06/27/23 05:11 06/27/23 05:11 Labs: Abnormal Lab Results - Last 24 Hours (Table) 06/27/23 06/27/23 06/27/23 Range/Units 11:19 16:58 20:35 POC Glucose (mg/dL) 196 H 205 H 228 H (70-110) mg/dL 06/28/23 Range/Units 06:06 POC Glucose (mg/dL) 182 H (70-110) mg/dL Assessment and Plan (1) Streptococcal bacteremia Current Visit: Yes Status: Acute Code(s): R78.81 - BACTEREMIA; B95.5 - UNSP STREPTOCOCCUS THE CAUSE OF DISEASES CLASSD [facility] SNOMED Code(s): 026997515053 (2) Diabetic infection of right foot Current Visit: Yes Status: Acute Code(s): E11.628 - TYPE 2 DIABETES MELLITUS WITH OTHER SKIN COMPLICATIONS; L08.9 - LOCAL INFECTION OF THE SKIN AND SUBCUTANEOUS TISSUE, UNSP SNOMED Code(s): 11854379 (3) Wet gangrene Current Visit: Yes Status: Acute Code(s): I96 - GANGRENE, NOT ELSEWHERE CLASSIFIED SNOMED Code(s): 379255711 Plan: 1patient presented to hospital with sepsis in this patient who did have fever elevated white count is also likely her right big toe diabetic foot infection in this patient with evidence of significant swelling and gas formation likely related to the polymicrobial melissa usually associated with diabetic foot infection 2-positive blood culture with Streptococcus agalactiae likely due to right big toe diabetic foot infection 3Patient is status post amputation of the right big toe however he still has some inflammation and will benefit from IV antibiotic is on discharge 4-patient to continue with Unasyn 3 g every 6 hours , will need a PICC line and outpatient IV antibiotics Dictation was produced using [employer] dictation software. please excuse any grammatical, word or spelling errors. Time with Patient: Less than 30
[2023-06-28 20:22] LABS: Glucose,Whole Blood 224 mg/dL (70-110)
[2023-06-28] MEDS: INSULIN DETEMIR (LEVEMIR) 100 UNIT/ML SYR SQ SCH (22:13)
[2023-06-29] MEDS: AMPICILLIN-SULBACTAM 3 GM in SODIUM CHLORIDE 0.9% 100 ML IVPB SCH ×4 (00:55→19:54)
[2023-06-29 05:40] LABS: Glucose,Whole Blood 137 mg/dL (70-110)
[2023-06-29] MEDS: INSULIN ASPART (NovoLOG) 100 UNIT/ML VIAL SQ SCH ×4 (05:42→21:39)
[2023-06-29] MEDS: HEPARIN SODIUM,PORCINE 5,000 UNIT/ML 1 ML VIAL SQ SCH ×3 (08:43→23:35)
[2023-06-29] MEDS: amLODIPine 10 MG TAB PO SCH (08:43)
[2023-06-29 11:38] LABS: Glucose,Whole Blood 208 mg/dL (70-110)
[2023-06-29 16:44] LABS: Glucose,Whole Blood 196 mg/dL (70-110)
--- NOTE | 2023-06-29 17:05 | P.PN ---
Subjective Progress Note Date: 06/29/23 (delayed charting seen at 1115) Patient is a 42-year-old male with no known past medical history as he has not seen a primary care physician who presented to the emergency department due to right great toe pain and swelling. In the ED he underwent an extensive evaluation. Labs were remarkable for white blood cell count of 12.5, sodium 131, glucose 318, ESR 106, CRP of 25.5. X-ray of the right foot showed marked soft tissue swelling with gas and tiny radiopaque foreign body in the right great toe. Patient was subsequently diagnosed with gangrene of the right great toe and was started on Zosyn and vancomycin. Infectious disease and vascular surgery were consulted. Patient came back with group B strep bacteremia. He underwent a right great toe amputation on 06/25/23 without any immediate postoperative complications. Patient antibiotics were descalated to Unasyn. He was also found to have new onset diabetes with A1c 12.7. Discussed with patient that he is medically optimized for discharge and that we need his insurance information as soon as possible so we can correlate possible outpatient IV antibiotics. This is his the third time I have asked the patient to help us obtain insurance information for outpatient medications. He denies any nausea, vomiting, diarrhea Vital signs reviewed General: nontoxic, no distress, appears at stated age Cardiovascular: S1S2 reg, no murmur, positive posterior tibial pulse bilateral, Lungs: CTA bilateral, no rhonchi, no rales , no accessory muscle use Abdominal: soft, nontender to palpation, no guarding, no appreciable organomegaly Ext: no gross muscle atrophy, no edema b/l lower extremities, no contractures Neuro: CN II-XI grossly intact, no focal neuro deficits, right great toe amputation site with dressing in place Psych: Alert, oriented, appropriate affect Assessment/Plan: Bacteremia, group B strep Gangrene infection of right great toe status post right great toe amputation 06/25/23 Sepsis, resolved -Continue with Unasyn 3 g every 6 hours day #5 -Case discussed with Dr. Correa. Plan will be for outpatient Rocephin infusion. Unfortunately by the time patient's insurance information was obtained PICC line services were no longer available. Anticipate patient will not have PICC line placed until 07/02/23. However nursing indicated they may be able to place PICC line tomorrow. -Vascular recs: Heel walk only, cleared for discharge. -Continue Tylenol 650 mg every 6 hours as needed for mild pain/fever, [place] 5/325 mg tablets as needed for moderate pain, and Dilaudid 0.5 mg every 3 hours as needed for severe pain. - CBC and BMP in AM Newly diagnosed diabetes mellitus with a hemoglobin A1c of 12.7% with Hyperglycemia Pseudohyponatremia, resolved - SSI, follow BS - WIll need insulin on discharge - Levemir 20 units at night, add metformin as plan to discharge patient on this medication. Elevated blood pressures without prior diagnosis of hypertension -Norvasc 10 mg daily, follow blood pressures Imaging: None new Data Review: Blood sugars reviewed from today show an fasting of 132 DVT prophylaxis: Heparin Anticipated discharge date: 24-[address]: home This dictation was prepared using [employer] voice recognition software. Though every attempt is made to correct errors during dictation some may still exist. Objective - Vital Signs Vital signs: Vital Signs Temp 97.7 F 06/29/23 13:22 Pulse 95 06/29/23 13:22 Resp 18 06/29/23 13:22 BP 134/74 06/29/23 13:22 Pulse Ox 98 06/29/23 13:22 FiO2 Intake & Output 06/28/23 06/29/23 06/29/23 18:59 06:59 18:59 Intake Total 520 Balance 520 Intake: Oral 520 Other: # Voids 5 2 # Bowel Movements 1 - Labs CBC & Chem 7: 06/27/23 05:11 06/27/23 05:11 Labs: Abnormal Lab Results - Last 24 Hours (Table) 06/28/23 06/28/23 06/29/23 Range/Units 17:07 20:20 05:37 POC Glucose (mg/dL) 279 H 224 H 137 H (70-110) mg/dL 06/29/23 06/29/23 Range/Units 11:36 16:43 POC Glucose (mg/dL) 208 H 196 H (70-110) mg/dL Microbiology - Last 24 Hours (Table) 06/27/23 16:03 Blood Culture - Preliminary Blood
[2023-06-29] MEDS: metFORMIN 500 MG TAB PO SCH (17:40)
--- NOTE | 2023-06-29 17:43 | P.PN ---
Subjective Progress Note Date: 06/29/23 Principal diagnosis: Reason for follow-up is right big toe diabetic foot infection with osteomyelitis Patient is a 42-year-old male with no significant past medical history presenting to the ER for a evaluation of the right big toe swelling and redness, patient with a newly diagnosed diabetes mellitus has been diagnosed with the diabetic foot infection along with strep bacteremia. Patient is status post amputation of the right big toe completed 06/25/2023 On today's evaluation that is 06/29/2023 the patient remains to be afebrile, the patient is breathing comfortably on room air and no need for oxygen. The patient denies shortness of breath denies any chest pain or cough, patient denies nausea/vomiting or diarrhea and no abdominal pain. patient denies any pain to the right big toe amputation site Patient white count is 8.84 and a creatinine of 0.5 as of 06/27/2023 no new lab has been obtained today, blood culture with Streptococcus agalactiae Objective - Vital Signs Vital signs: Vital Signs Temp 98.3 F 06/29/23 08:36 Pulse 76 06/29/23 08:36 Resp 18 06/29/23 08:36 BP 147/84 06/29/23 08:36 Pulse Ox 96 06/29/23 08:36 FiO2 Intake & Output 06/28/23 06/29/23 06/29/23 18:59 06:59 18:59 Intake Total 520 Balance 520 Intake: Oral 520 Other: # Voids 5 2 # Bowel Movements 1 - Exam GENERAL DESCRIPTION: A middle-age male lying in bed in no distress RESPIRATORY SYSTEM: Unlabored breathing , clear to auscultation anteriorly HEART: S1 S2 regular rate and rhythm , ABDOMEN: Soft , no tenderness EXTREMITIES: Right big toe amputation site wound is currently dressed - Labs CBC & Chem 7: 06/27/23 05:11 06/27/23 05:11 Labs: Abnormal Lab Results - Last 24 Hours (Table) 06/28/23 06/28/23 06/29/23 Range/Units 17:07 20:20 05:37 POC Glucose (mg/dL) 279 H 224 H 137 H (70-110) mg/dL 06/29/23 Range/Units 11:36 POC Glucose (mg/dL) 208 H (70-110) mg/dL Microbiology - Last 24 Hours (Table) 06/27/23 16:03 Blood Culture - Preliminary Blood Assessment and Plan (1) Streptococcal bacteremia Current Visit: Yes Status: Acute Code(s): R78.81 - BACTEREMIA; B95.5 - UNSP STREPTOCOCCUS THE CAUSE OF DISEASES [facility] SNOMED Code(s): 455349722147 (2) Diabetic infection of right foot Current Visit: Yes Status: Acute Code(s): E11.628 - TYPE 2 DIABETES MELLITUS WITH OTHER SKIN COMPLICATIONS; L08.9 - LOCAL INFECTION OF THE SKIN AND SUBCUTANEOUS TISSUE, UNSP SNOMED Code(s): 99131087 (3) Wet gangrene Current Visit: Yes Status: Acute Code(s): I96 - GANGRENE, NOT ELSEWHERE CLASSIFIED SNOMED Code(s): 243712936 Plan: 1patient presented to hospital with sepsis in this patient who did have fever elevated white count is also likely her right big toe diabetic foot infection in this patient with evidence of significant swelling and gas formation likely related to the polymicrobial melissa usually associated with diabetic foot infection 2-positive blood culture with Streptococcus agalactiae likely due to right big toe diabetic foot infection 3Patient is status post amputation of the right big toe however he still has some inflammation and will benefit from IV antibiotic on discharge 4-patient to continue with Unasyn 3 g every 6 hours , patient apparently was not providing his insurance information however after telling the patient that he will benefit from IV antibiotics he was able to provide insurance formation to the insurance case manager she will look into his coverage for outpatient IV antibiotics Dictation was produced using [employer] dictation software. please excuse any grammatical, word or spelling errors. Time with Patient: Less than 30
[2023-06-29 20:55] LABS: Glucose,Whole Blood 194 mg/dL (70-110)
[2023-06-29] MEDS: INSULIN DETEMIR (LEVEMIR) 100 UNIT/ML SYR SQ SCH (21:40)
[2023-06-30] MEDS: AMPICILLIN-SULBACTAM 3 GM in SODIUM CHLORIDE 0.9% 100 ML IVPB SCH ×4 (01:36→20:37)
[2023-06-30 04:56] LABS: HCT 40.1 % (39.0-53.0); HGB 13.3 gm/dL (13.0-17.5); MCH 28.6 pg (25.0-35.0); MCHC 33.2 g/dL (31.0-37.0); Mean Platelet Volume 6.8; Platelet Count 457 k/uL (150-450); RBC 4.67 m/uL (4.30-5.90); RDW 12.8 % (11.5-15.5); WBC 9.3 k/uL (3.8-10.6)
[2023-06-30 05:05] LABS: African American GFR (CKD) >90 (>60 ml/min/1.73 sqM); Anion Gap 6 mmol/L; Blood Urea Nitrogen 10 mg/dL (9-20); Calcium 8.6 mg/dL (8.4-10.2); Carbon Dioxide 30 mmol/L (22-30); Chloride 99 mmol/L (98-107); Glucose 179 mg/dL (74-99); Non-African American GFR(CKD) >90 (>60 ml/min/1.73 sqM); Potassium 4.5 mmol/L (3.5-5.1); Sodium 135 mmol/L (137-145)
[2023-06-30 05:46] LABS: Glucose,Whole Blood 167 mg/dL (70-110)
[2023-06-30] MEDS: INSULIN ASPART (NovoLOG) 100 UNIT/ML VIAL SQ SCH ×4 (06:22→20:37)
[2023-06-30] MEDS: metFORMIN 500 MG TAB PO SCH ×2 (06:22→17:21)
[2023-06-30] MEDS: amLODIPine 10 MG TAB PO SCH (09:41)
[2023-06-30] MEDS: HEPARIN SODIUM,PORCINE 5,000 UNIT/ML 1 ML VIAL SQ SCH ×3 (09:41→22:48)
[2023-06-30 11:34] LABS: Glucose,Whole Blood 162 mg/dL (70-110)
--- NOTE | 2023-06-30 16:30 | P.PN ---
Subjective Progress Note Date: 06/30/23 Hospital course: Patient is a very pleasant 42-year-old male with no reported past medical history however does not follow up outpatient with a primary doctor. Patient presented to the emergency department on 06/23/23 secondary to right great toe pain and swelling. Patient was found to have significant swelling of right great toe accompanied by erythema and sloughing of skin with erythema extending up into dorsal surface of foot as well as lower and mid youngblood. He underwent full evaluation in the emergency department. Labs were completed showing leukocytosis with WBC count of 12.5. BMP showing mild hyponatremia sodium 131, hypochloremia with chloride of 92, and an elevated glucose of 318. Inflammatory markers were elevated with ESR of 106 and CRP of 25.5. X-ray right foot showing marked soft tissue swelling with soft gas and tiny radiopaque foreign body on the right great toe negative for osseous or intra-articular abnormality. Patient started on IV antibiotics of vancomycin and Zosyn and admitted under services with consultation to vascular surgery and infectious disease. Blood cultures resulting positive for Group B strep bacteremia and antibiotics were deescalated to Unasyn at this time based upon culture and sensitivity report. Patient underwent a right great toe amputation on 06/25/23 without any immediate postoperative complications. In addition to gangrene infection and bacteremia patient was also was also found to have newly diagnosed diabetes with A1c 12.7 and persistently elevated blood pressures and started on Norvasc 10 mg daily. Physical exam: Patient seen and fully evaluated at bedside this morning. He currently denies having any needs or complaints. Reports postoperative pain is controlled. Vital signs reviewed General: nontoxic, no distress, appears at stated age Cardiovascular: Regular rate and rhythm, S1S2 reg, no murmur, positive posterior tibial pulses bilaterally, Lungs: Respirations even, regular, and unlabored with lungs CTA bilaterally, no rhonchi, no rales , no accessory muscle use Abdominal: soft, nontender to palpation, no guarding, no appreciable organomegaly Ext: no gross muscle atrophy, no edema b/l lower extremities, no contractures. Right great toe amputation site with dressing in place and clean, dry, and intact Neuro: CN II-XI grossly intact, no focal neuro deficits, GCS 15. Psych: Alert, oriented, appropriate affect Assessment and Plan of Care: Bacteremia, group B strep Gangrene infection of right great toe status post right great toe amputation 06/25/23 Sepsis, resolved -Continue with Unasyn 3 g every 6 hours day #5 -Infectious disease following, patient to be discharged home on prolonged antibiotic course with Rocephin. PICC line to be placed, Anticipate patient will not have PICC line placed until 07/02/23. -Vascular surgery clearing patient from their perspective for discharge recommending outpatient follow-up in our office. Vascular surgeon stating patient may heel walk only, recommending no pressured to be placed on distal portion of the foot/postsurgical area. -Continue symptomatic care and pain management with Tylenol 650 mg every 6 hours as needed for mild pain/fever, [place] 5/325 mg tablets as needed for moderate pain, and Dilaudid 0.5 mg every 3 hours as needed for severe pain. Newly diagnosed diabetes mellitus with a hemoglobin A1c of 12.7% with continued Hyperglycemia Pseudohyponatremia, resolved -Continue glycemic protocol with NovoLog sliding scale. -Will need insulin on discharge - Levemir 20 units at night, add metformin as plan to discharge patient on this medication. -Blood glucose levels ranging between 137 and 208 over the past 24 hours. Elevated blood pressures without prior diagnosis of hypertension -Continue amlodipine 10 mg daily, follow blood pressures Data and imaging reviewed: Blood glucose levels reviewed and have been ranging between 137 and 208 over the past 24 hours. Morning labs completed and reviewed. CBC showing mild thrombocytosis with platelet count of 457 otherwise normal findings. BMP showing mild hyponatremia with sodium of 135 otherwise normal findings. Vital signs reviewed. Blood pressure 138/85, heart rate 67, respiratory rate 16, temp 98.0F, and SpO2 of 97% on room air. DVT prophylaxis: Heparin Anticipated discharge date: Likely Sunday morning once PICC line has been placed and IV antibiotic infusion has been arranged Anticipated discharge place: Home with home care Patient was seen independently by Nurse Pracitioner. This document was prepared using [employer] dictation software. Please allow for errors in installer interior assemblies, while rare they do occur. Objective - Vital Signs Vital signs: Vital Signs Temp 98.0 F 06/30/23 06:57 Pulse 67 06/30/23 06:57 Resp 16 06/30/23 06:57 BP 138/85 06/30/23 06:57 Pulse Ox 97 06/30/23 06:57 FiO2 Intake & Output 06/29/23 06/30/23 06/30/23 18:59 06:59 18:59 Other: Voiding Method Toilet # Voids 5 1 - Labs CBC & Chem 7: 06/30/23 04:11 06/30/23 04:11 Labs: Abnormal Lab Results - Last 24 Hours (Table) 06/29/23 06/29/23 06/29/23 Range/Units 11:36 16:43 20:54 Plt Count (150-450) k/uL Sodium (137-145) mmol/L Creatinine (0.66-1.25) mg/dL Glucose (74-99) mg/dL POC Glucose (mg/dL) 208 H 196 H 194 H (70-110) mg/dL 06/30/23 06/30/23 06/30/23 Range/Units 04:11 04:11 05:44 Plt Count 457 H (150-450) k/uL Sodium 135 L (137-145) mmol/L Creatinine 0.61 L (0.66-1.25) mg/dL Glucose 179 H (74-99) mg/dL POC Glucose (mg/dL) 167 H (70-110) mg/dL Microbiology - Last 24 Hours (Table) 06/27/23 16:03 Blood Culture - Preliminary Blood 06/28/23 14:36 Blood Culture - Preliminary Blood
[2023-06-30 16:45] LABS: Glucose,Whole Blood 249 mg/dL (70-110)
[2023-06-30 19:50] LABS: Glucose,Whole Blood 225 mg/dL (70-110)
[2023-06-30] MEDS: INSULIN DETEMIR (LEVEMIR) 100 UNIT/ML SYR SQ SCH (20:37)
[2023-07-01] MEDS: AMPICILLIN-SULBACTAM 3 GM in SODIUM CHLORIDE 0.9% 100 ML IVPB SCH ×4 (01:05→20:42)
[2023-07-01 06:00] LABS: Glucose,Whole Blood 118 mg/dL (70-110)
[2023-07-01] MEDS: INSULIN ASPART (NovoLOG) 100 UNIT/ML VIAL SQ SCH ×4 (06:09→20:42)
[2023-07-01] MEDS: amLODIPine 10 MG TAB PO SCH (09:43)
[2023-07-01] MEDS: metFORMIN 500 MG TAB PO SCH ×2 (09:43→17:56)
[2023-07-01] MEDS: HEPARIN SODIUM,PORCINE 5,000 UNIT/ML 1 ML VIAL SQ SCH ×3 (09:43→23:31)
[2023-07-01] MEDS: oxyCODONE-APAP 5-325MG 1 EACH TAB PO PRN (09:49)
[2023-07-01 12:00] LABS: Glucose,Whole Blood 155 mg/dL (70-110)
--- NOTE | 2023-07-01 15:11 | P.PN ---
Subjective Progress Note Date: 06/30/23 Principal diagnosis: Reason for follow-up is right big toe diabetic foot infection with osteomyelitis Patient is a 42-year-old male with no significant past medical history presenting to the ER for a evaluation of the right big toe swelling and redness, patient with a newly diagnosed diabetes mellitus has been diagnosed with the diabetic foot infection along with strep bacteremia. Patient is status post amputation of the right big toe completed 06/25/2023 On today's evaluation that is 06/30/2023 the patient continues to be afebrile, the patient is breathing comfortably on room air and denies any shortness of breath, the patient denies chest pain or cough, patient denies abdominal pain, no nausea/vomiting or diarrhea. the patient did not have any pain to the right big toe amputation site Patient white count is 9.3, creatinine 0.61, blood culture with Streptococcus agalactiae Objective - Vital Signs Vital signs: Vital Signs Temp 98.0 F 06/30/23 06:57 Pulse 67 06/30/23 06:57 Resp 16 06/30/23 06:57 BP 138/85 06/30/23 06:57 Pulse Ox 97 06/30/23 06:57 FiO2 Intake & Output 06/29/23 06/30/23 06/30/23 18:59 06:59 18:59 Other: Voiding Method Toilet # Voids 5 1 - Exam GENERAL DESCRIPTION: A middle-age male lying in bed in no distress RESPIRATORY SYSTEM: Unlabored breathing , clear to auscultation anteriorly HEART: S1 S2 regular rate and rhythm , ABDOMEN: Soft , no tenderness EXTREMITIES: Right big toe amputation site wound is currently dressed - Labs CBC & Chem 7: 06/30/23 04:11 06/30/23 04:11 Labs: Abnormal Lab Results - Last 24 Hours (Table) 06/29/23 06/29/23 06/30/23 Range/Units 16:43 20:54 04:11 Plt Count 457 H (150-450) k/uL Sodium (137-145) mmol/L Creatinine (0.66-1.25) mg/dL Glucose (74-99) mg/dL POC Glucose (mg/dL) 196 H 194 H (70-110) mg/dL 06/30/23 06/30/23 06/30/23 Range/Units 04:11 05:44 11:32 Plt Count (150-450) k/uL Sodium 135 L (137-145) mmol/L Creatinine 0.61 L (0.66-1.25) mg/dL Glucose 179 H (74-99) mg/dL POC Glucose (mg/dL) 167 H 162 H (70-110) mg/dL Microbiology - Last 24 Hours (Table) 06/27/23 16:03 Blood Culture - Preliminary Blood 06/28/23 14:36 Blood Culture - Preliminary Blood Assessment and Plan (1) Streptococcal bacteremia Current Visit: Yes Status: Acute Code(s): R78.81 - BACTEREMIA; B95.5 - UNSP STREPTOCOCCUS THE CAUSE OF DISEASES CL[facility]SD [facility] SNOMED Code(s): 502211483141 (2) Diabetic infection of right foot Current Visit: Yes Status: Acute Code(s): E11.628 - TYPE 2 DIABETES MELLITUS WITH OTHER SKIN COMPLICATIONS; L08.9 - LOCAL INFECTION OF THE SKIN AND SUBCUTANEOUS TISSUE, UNSP SNOMED Code(s): 54197821 (3) Wet gangrene Current Visit: Yes Status: Acute Code(s): I96 - GANGRENE, NOT ELSEWHERE CLASSIFIED SNOMED Code(s): 191294819 Plan: 1patient presented to hospital with sepsis in this patient who did have fever elevated white count is also likely her right big toe diabetic foot infection in this patient with evidence of significant swelling and gas formation likely related to the polymicrobial melissa usually associated with diabetic foot infection 2-positive blood culture with Streptococcus agalactiae likely due to right big toe diabetic foot infection 3Patient is status post amputation of the right big toe however he still has some inflammation and will benefit from IV antibiotic on discharge 4-patient has shown clinical improvement, to continue with Unasyn 3 g every 6 hours waiting for patient having antibiotic coverage Dictation was produced using [email or web address] dictation software. please excuse any grammatical, word or spelling errors. Time with Patient: Less than 30
--- NOTE | 2023-07-01 15:12 | P.PN ---
Subjective Progress Note Date: 07/01/23 Principal diagnosis: Reason for follow-up is right big toe diabetic foot infection with osteomyelitis Patient is a 42-year-old male with no significant past medical history presenting to the ER for a evaluation of the right big toe swelling and redness, patient with a newly diagnosed diabetes mellitus has been diagnosed with the diabetic foot infection along with strep bacteremia. Patient is status post amputation of the right big toe completed 06/25/2023 On today's evaluation that is 07/01/2023 the patient denies any fever or any chills, the patient denies shortness of breath chest pain or cough, the patient nausea/vomiting or diarrhea and no abdominal pain., The patient denies pain to the right big toe amputation site Patient white count is 9.3, creatinine 0.61 as of yesterday no lab draw today, blood culture with Streptococcus agalactiae Objective - Vital Signs Vital signs: Vital Signs Temp 97.6 F 07/01/23 07:56 Pulse 76 07/01/23 07:56 Resp 17 07/01/23 07:56 BP 146/83 07/01/23 07:56 Pulse Ox 96 07/01/23 07:56 FiO2 Intake & Output 06/30/23 07/01/23 07/01/23 18:59 06:59 18:59 Other: Voiding Method Toilet Toilet Toilet # Voids 5 1 # Bowel Movements 1 - Exam GENERAL DESCRIPTION: A middle-age male lying in bed in no distress RESPIRATORY SYSTEM: Unlabored breathing , clear to auscultation anteriorly HEART: S1 S2 regular rate and rhythm , ABDOMEN: Soft , no tenderness EXTREMITIES: Right big toe amputation site wound is currently dressed - Labs CBC & Chem 7: 06/30/23 04:11 06/30/23 04:11 Labs: Abnormal Lab Results - Last 24 Hours (Table) 06/30/23 06/30/23 07/01/23 Range/Units 16:44 19:49 05:59 POC Glucose (mg/dL) 249 H 225 H 118 H (70-110) mg/dL 07/01/23 Range/Units 11:54 POC Glucose (mg/dL) 155 H (70-110) mg/dL Microbiology - Last 24 Hours (Table) 06/27/23 16:03 Blood Culture - Preliminary Blood 06/28/23 14:36 Blood Culture - Preliminary Blood Assessment and Plan (1) Streptococcal bacteremia Current Visit: Yes Status: Acute Code(s): R78.81 - BACTEREMIA; B95.5 - UNSP STREPTOCOCCUS THE CAUSE OF DISEASES CLASSD [facility] SNOMED Code(s): 066884288943 (2) Diabetic infection of right foot Current Visit: Yes Status: Acute Code(s): E11.628 - TYPE 2 DIABETES MELLITUS WITH OTHER SKIN COMPLICATIONS; L08.9 - LOCAL INFECTION OF THE SKIN AND SUBCUTANEOUS TISSUE, UNSP SNOMED Code(s): 77279460 (3) Wet gangrene Current Visit: Yes Status: Acute Code(s): I96 - GANGRENE, NOT ELSEWHERE CLASSIFIED SNOMED Code(s): 981526537 Plan: 1patient presented to hospital with sepsis in this patient who did have fever elevated white count is also likely her right big toe diabetic foot infection in this patient with evidence of significant swelling and gas formation likely related to the polymicrobial melissa usually associated with diabetic foot infection 2-positive blood culture with Streptococcus agalactiae likely due to right big toe diabetic foot infection 3-patient has shown clinical improvement, patient to continue with Unasyn 3 g every 6 hours he will benefit from continuation of IV antibiotics on discharge, currently waiting for coverage Dictation was produced using [employer] dictation software. please excuse any grammatical, word or spelling errors. Time with Patient: Less than 30
--- NOTE | 2023-07-01 16:56 | P.PN ---
Subjective Progress Note Date: 07/01/23 Hospital course: Patient is a very pleasant 42-year-old male with no reported past medical history however does not follow up outpatient with a primary doctor. Patient presented to the emergency department on 06/23/23 secondary to right great toe pain and swelling. Patient was found to have significant swelling of right great toe accompanied by erythema and sloughing of skin with erythema extending up into dorsal surface of foot as well as lower and mid youngblood. He underwent full evaluation in the emergency department. Labs were completed showing leukocytosis with WBC count of 12.5. BMP showing mild hyponatremia sodium 131, hypochloremia with chloride of 92, and an elevated glucose of 318. Inflammatory markers were elevated with ESR of 106 and CRP of 25.5. X-ray right foot showing marked soft tissue swelling with soft gas and tiny radiopaque foreign body on the right great toe negative for osseous or intra-articular abnormality. Patient started on IV antibiotics of vancomycin and Zosyn and admitted under services with consultation to vascular surgery and infectious disease. Blood cultures resulting positive for Group B strep bacteremia and antibiotics were deescalated to Unasyn at this time based upon culture and sensitivity report. Patient underwent a right great toe amputation on 06/25/23 without any immediate postoperative complications. In addition to gangrene infection and bacteremia patient was also was also found to have newly diagnosed diabetes with A1c 12.7 and persistently elevated blood pressures and started on Norvasc 10 mg daily. Physical exam: Patient seen and fully evaluated at bedside this morning. He was sitting up in the chair this morning. He continues to deny having any needs or complaints at this time. He reports he has been walking with pressure to heal only and states current medication regimen is controlling postoperative pain. Patient aware that plan for discharge is for tomorrow. Vital signs reviewed General: nontoxic, no distress, appears at stated age Cardiovascular: Regular rate and rhythm, S1S2 reg, no murmur, positive posterior tibial pulses bilaterally, Lungs: Respirations even, regular, and unlabored with lungs CTA bilaterally, no rhonchi, no rales , no accessory muscle use Abdominal: soft, nontender to palpation, no guarding, no appreciable organomegaly Ext: no gross muscle atrophy, no edema b/l lower extremities, no contractures. Right great toe amputation site with dressing in place and clean, dry, and intact Neuro: CN II-XI grossly intact, no focal neuro deficits, GCS 15. Psych: Alert, oriented, appropriate affect Assessment and Plan of Care: Bacteremia, group B strep Gangrene infection of right great toe status post right great toe amputation 06/25/23 Sepsis, resolved -Continue with Unasyn 3 g every 6 hours day #7 -Infectious disease following, patient to be discharged home on prolonged antibiotic course with Rocephin. PICC line to be placed, Anticipate patient will not have PICC line placed until 07/02/23. -Vascular surgery clearing patient from their perspective for discharge recommending outpatient follow-up in our office. Vascular surgeon stating patient may heel walk only, recommending no pressured to be placed on distal portion of the foot/postsurgical area. -Continue symptomatic care and pain management with Tylenol 650 mg every 6 hours as needed for mild pain/fever, [place] 5/325 mg tablets as needed for moderate pain, and Dilaudid 0.5 mg every 3 hours as needed for severe pain. Newly diagnosed diabetes mellitus with a hemoglobin A1c of 12.7% with continued Hyperglycemia Pseudohyponatremia, resolved -Continue glycemic protocol with NovoLog sliding scale. -Will need insulin on discharge - Levemir 20 units at night, add metformin as plan to discharge patient on this medication. -Blood glucose levels ranging between 118-249 over the past 24 hours. Elevated blood pressures without prior diagnosis of hypertension -Continue amlodipine 10 mg daily, follow blood pressures Data and imaging reviewed: Blood glucose levels reviewed and have been ranging between 118 and 249 over the past 24 hours Vital signs reviewed. Blood pressure 146/83, heart rate 76, respiratory rate 17, temp 97.6F, SpO2 of 96% on room air. DVT prophylaxis: Heparin Anticipated discharge date: Likely Sunday morning once PICC line has been placed and IV antibiotic infusion has been arranged Anticipated discharge place: Home with home care Patient was seen independently by Nurse Pracitioner. This document was prepared using [email or web address] dictation software. Please allow for errors in map maker, while rare they do occur. Objective - Vital Signs Vital signs: Vital Signs Temp 97.8 F 07/01/23 01:10 Pulse 71 07/01/23 01:10 Resp 18 07/01/23 01:10 BP 142/79 07/01/23 01:10 Pulse Ox 95 07/01/23 01:10 FiO2 Intake & Output 12/09/2107/01/23 07/01/23 18:59 06:59 18:59 Other: Voiding Method Toilet Toilet # Voids 5 1 # Bowel Movements 1 - Labs CBC & Chem 7: 06/30/23 04:11 06/30/23 04:11 Labs: Abnormal Lab Results - Last 24 Hours (Table) 06/30/23 06/30/23 06/30/23 Range/Units 11:32 16:44 19:49 POC Glucose (mg/dL) 162 H 249 H 225 H (70-110) mg/dL 07/01/23 Range/Units 05:59 POC Glucose (mg/dL) 118 H (70-110) mg/dL Microbiology - Last 24 Hours (Table) 06/27/23 16:03 Blood Culture - Preliminary Blood 06/28/23 14:36 Blood Culture - Preliminary Blood
[2023-07-01 17:02] LABS: Glucose,Whole Blood 163 mg/dL (70-110)
[2023-07-01 19:28] LABS: Glucose,Whole Blood 166 mg/dL (70-110)
[2023-07-01] MEDS: INSULIN DETEMIR (LEVEMIR) 100 UNIT/ML SYR SQ SCH (20:43)
[2023-07-02] MEDS: AMPICILLIN-SULBACTAM 3 GM in SODIUM CHLORIDE 0.9% 100 ML IVPB SCH ×2 (01:47→08:29)
[2023-07-02 06:12] LABS: Glucose,Whole Blood 114 mg/dL (70-110)
[2023-07-02] MEDS: metFORMIN 500 MG TAB PO SCH (06:33)
[2023-07-02] MEDS: INSULIN ASPART (NovoLOG) 100 UNIT/ML VIAL SQ SCH ×2 (07:21→12:23)
[2023-07-02] MEDS: amLODIPine 10 MG TAB PO SCH (08:29)
[2023-07-02] MEDS: HEPARIN SODIUM,PORCINE 5,000 UNIT/ML 1 ML VIAL SQ SCH (08:29)
[2023-07-02 08:40] LABS: HCT 43.1 % (39.6-50.0); MCH 27.6 pg (27.0-32.0); MCHC 32.5 g/dL (32.0-37.0); Mean Platelet Volume 9.1 FL (9.5-12.2); NRBC Per 100 WBC 0 X 10*3/uL (0.00-0.01); Platelet Count 450 X 10*3/uL (140-440); RBC 5.07 X 10*6/uL (4.40-5.60); RDW 12.7 % (11.5-14.5); WBC 8.04 X 10*3/uL (4.50-10.00)
[2023-07-02 08:53] LABS: ALT 19 U/L (10-49); AST 12 U/L (14-35); Albumin 3.4 g/dL (3.8-4.9); Albumin/Globulin Ratio 1.26 Ratio (1.60-3.17); Alkaline Phosphatase 70 U/L (41-126); Blood Urea Nitrogen 9.9 mg/dL (9.0-27.0); Calcium 9.3 mg/dL (8.7-10.3); Carbon Dioxide 27.5 mmol/L (21.6-31.8); Chloride 103 mmol/L (96-109); Globulin 2.7 g/dL (1.6-3.3); Glucose 104 mg/dL (70-110); Potassium 4.2 mmol/L (3.5-5.5); Sodium 140 mmol/L (135-145); Total Bilirubin 0.5 mg/dL (0.3-1.2); Total Protein 6.1 g/dL (6.2-8.2)
[2023-07-02] MEDS ORDERED: LIDOCAINE 1% INJ 10MG/ML (20 ML MDV) SQ ONE (09:00)
--- NOTE | 2023-07-02 11:06 | P.DS ---
Providers Date of admission: 06/23/23 19:23 Expected date of discharge: 07/02/23 Attending physician: Paul Zaman MD Consults: 06/24/23 09:10 Consult Physician Routine Consulting Provider: Roberth Correa Consult Reason/Comments: gangreen r great toe Do you want consulting provider notified?: Yes Primary care physician: Stated None Hospital Course: Discharge Diagnosis: Bacteremia, group B strep. Patient received 7 day course of IV antibiotics with Unasyn and is being discharged home on Rocephin 2 g daily. Outpatient antibiotics to be received at infusion center and orders to be managed by infectious disease. Gangrene infection of right great toe status post right great toe amputation 06/25/23 Sepsis, resolved Newly diagnosed diabetes mellitus with a hemoglobin A1c of 12.7% with continued Hyperglycemia. Patient discharged home on NovoLog 3 units daily with meals, Levemir 20 units daily and metformin 500 mg twice daily. Patient provided with glucometer and diabetic testing supplies. Patient educated on the importance of diet and lifestyle changes and for close monitoring of signs/symptoms of hypoglycemia. Patient instructed as his infection is now controlled and with diet and lifestyle modifications he will likely wean down dose of insulin as directed by his PCP. Patient instructed he will need to check his blood glucose levels 4 times daily and document these findings and a daily log to bring with him to his next doctor's appointment for closer monitoring/management of his glucose levels. Pseudohyponatremia, resolved. Elevated blood pressures without prior diagnosis of hypertension. Continue amlodipine 10 mg daily, follow blood pressures Hospital Course: Patient is a very pleasant 42-year-old male with no reported past medical history however does not follow up outpatient with a primary doctor. Patient presented to the emergency department on 06/23/23 secondary to right great toe pain and swelling. Patient was found to have significant swelling of right great toe accompanied by erythema and sloughing of skin with erythema extending up into dorsal surface of foot as well as lower and mid youngblood. He underwent full evaluation in the emergency department. Labs were completed showing leukocytosis with WBC count of 12.5. BMP showing mild hyponatremia sodium 131, hypochloremia with chloride of 92, and an elevated glucose of 318. Inflammatory markers were elevated with ESR of 106 and CRP of 25.5. X-ray right foot showing marked soft tissue swelling with soft gas and tiny radiopaque foreign body on the right great toe negative for osseous or intra-articular abnormality. Patient started on IV antibiotics of vancomycin and Zosyn and admitted under services with consultation to vascular surgery and infectious disease. Blood cultures resulting positive for Group B strep bacteremia and antibiotics were deescalated to Unasyn at this time based upon culture and sensitivity report. Patient underwent a right great toe amputation on 06/25/23 without any immediate postoperative complications. In addition to gangrene infection and bacteremia patient was also was also found to have newly diagnosed diabetes with A1c 12.7 and persistently elevated blood pressures and started on Norvasc 10 mg daily. Blood pressure is much better controlled and was 124/73, heart rate 67, respiratory rate 18, temp 97.7F, SpO2 of 99% on room air at time of discharge. PICC line was placed and patient being discharged home on IV antibiotics Rocephin 2 g daily. Outpatient antibiotics to be received at infusion center and orders to be managed by infectious disease. Physical exam: Vital signs reviewed General: nontoxic, no distress, appears at stated age Cardiovascular: Regular rate and rhythm, S1S2 reg, no murmur, positive posterior tibial pulses bilaterally, Lungs: Respirations even, regular, and unlabored with lungs CTA bilaterally, no rhonchi, no rales , no accessory muscle use Abdominal: soft, nontender to palpation, no guarding, no appreciable organomegaly Ext: no gross muscle atrophy, no edema b/l lower extremities, no contractures. Right great toe amputation site with dressing in place and clean, dry, and intact Neuro: CN II-XI grossly intact, no focal neuro deficits, GCS 15. Psych: Alert, oriented, appropriate affect A total of 39 minutes of time were spent preparing this complex discharge summary. Pt was discharged on 07/02/23 11:05 AM. Patient was seen independently by Nurse Practitioner. This document was prepared using [employer] dictation software. Please allow for errors in pick up operator while rare they do occur. I reviewed the documentation as provided by the JOSE above, who is the original author of this note. I agree with the documented assessment and plan, with the following changes: none Patient Condition at Discharge: Stable Plan - Discharge Summary Discharge Rx Participant: No New Discharge Prescriptions: New oxyCODONE-APAP 5-325MG [Percocet 5-325 mg] 1 each PO Q4HR PRN #18 tab PRN Reason: Severe Pain (Scale 7 To 10) cefTRIAXone [Rocephin] 2 gm IVPB Q24HR each metFORMIN HCL [Glucophage] 500 mg PO BID-W/MEALS 30 Days #60 tab amLODIPine [Norvasc] 10 mg PO DAILY 30 Days #30 tab Insulin Glargine,Hum.rec.anlog [Lantus Solostar Pen] 25 units SQ DAILY 30 Days #1 each metroNIDAZOLE [Flagyl] 500 mg PO TID #90 tab Discharge Medication List Insulin Glargine,Hum.rec.anlog [Lantus Solostar Pen] 25 units SQ DAILY 30 Days #1 each 07/02/23 [Rx] amLODIPine [Norvasc] 10 mg PO DAILY 30 Days #30 tab 07/02/23 [Rx] cefTRIAXone [Rocephin] 2 gm IVPB Q24HR each 07/02/23 [Rx] metFORMIN HCL [Glucophage] 500 mg PO BID-W/MEALS 30 Days #60 tab 07/02/23 [Rx] metroNIDAZOLE [Flagyl] 500 mg PO TID #90 tab 07/02/23 [Rx] oxyCODONE-APAP 5-325MG [Percocet 5-325 mg] 1 each PO Q4HR PRN #18 tab 07/02/23 [Rx] Follow up Appointment(s)/Referral(s): Brandy Vicente DO [STAFF PHYSICIAN] - 1 Week [facility], [NON-STAFF] - As Needed None,Stated [Primary Care Provider] - 1-2 days [facility], [REFERRING] - As Needed (Will be delivered tonight between 6-8p) Roberth Correa MD [STAFF PHYSICIAN] - 1 Week ([facility] will set up appointment ) Patient Instructions/Handouts: Type 2 Diabetes in Adults: New Diagnosis (DC), Basic Carbohydrate Counting (DC), Bacteremia (DC), Toe Amputation (DC) Activity/Diet/Wound Care/Special Instructions: Activity: Right foot heel walk only, where post op shoe when ambulating. Diet: Heart healthy and carb consistent diet. Avoid salts, or foods with hidden salts such as canned or boxed foods and frozen dinners. Extra salt makes your heart work harder and traps the fluid in your body for longer. Special Instructions: Take all of your medications as directed and remember to keep all of your doctor's appointments and follow-up as needed. Diabetic supplies at [facility] You are being discharged home on IV antibiotics, you'll need to follow up at infusion center as instructions. Antibiotics managed by infectious disease. You will need to check your blood glucose levels 4 times daily, before meals and at bedtime. It is important to document these findings in a daily log to bring with you to your next doctor's appointment as changes may need to be made to your medication regimen. Please be aware and monitor for signs/symptoms of hypoglycemia and seizure insulin requirements may change now that your infection has been treated as well as with the lifestyle and dietary modifications he plans on making. Dressing change right amputation site with Puracol AG three times a week May shower but no tub bathing or soaking Thank you for allowing us to participate in your care, it was truly a pleasure having you for our patient!!! Discharge Disposition: HOME SELF-CARE
--- NOTE | 2023-07-02 11:07 | IR ---
PICC LINE PLACEMENT: HISTORY: Infection requiring long-term antibiotic therapy PROCEDURE: Ultrasound and fluoroscopic guidance of PICC line placement. COMPLICATIONS: None ANESTHESIA: 1. 1% Lidocaine locally. FINDINGS/TECHNIQUE: The procedure was explained to the patient. The risks, complications, benefits and alternatives were discussed and any questions were answered. Informed consent was obtained. The patient was placed supine on the fluoroscopic table and prepped and draped in the usual sterile fash ion. Utilizing a 21 gauge needle and sonographic and fluoroscopic guidance, access in the left basi lic vein was achieved and there is placement of a 0.018 guidewire. The vein is patent. A 4-F sheath was placed over the guidewire. The guidewire and dilator were removed and a 4-F. PICC line was plac ed through the sheath with the tip at the level of the SVC. The sheath was removed, the catheter was flushed and sutured into position. The patient was stable throughout the procedure and remained sta ble upon discharge from the Department of Radiology. The vein puncture was patent under ultrasound. A borja scale image was obtained to document patency of the vein punctured. All elements of the maximal barrier technique were utilized. FLUOROSCOPY TIME: DAP 0.9Gy cm2 IMPRESSION: Successful PICC line placement under ultrasound and fluoroscopic guidance.
[2023-07-02 11:28] LABS: Glucose,Whole Blood 168 mg/dL (70-110)
[2023-07-02 14:46] VITALS: BP 121/71; PULSE 83; RESP 19; TEMP 98.6
--- NOTE | 2023-07-03 17:01 | P.PN ---
Subjective Progress Note Date: 07/02/23 Principal diagnosis: Reason for follow-up is right big toe diabetic foot infection with osteomyelitis Patient is a 42-year-old male with no significant past medical history presenting to the ER for a evaluation of the right big toe swelling and redness, patient with a newly diagnosed diabetes mellitus has been diagnosed with the diabetic foot infection along with strep bacteremia. Patient is status post amputation of the right big toe completed 06/25/2023 On today's evaluation that is 07/02/2023 the patient remains to be afebrile, the patient is breathing comfortably on room air and no need for supplemental oxygen, the patient denies having any chest pain denies any cough or sputum production, patient denies any abdominal pain no nausea vomiting or any diarrh ea, The patient denies pain to the right big toe amputation site Patient white count is 8.04 and a creatinine 0.6 , blood culture with Streptococcus agalactiae Objective - Vital Signs Vital signs: Vital Signs Temp 98.6 F 07/02/23 14:00 Pulse 83 07/02/23 14:00 Resp 19 07/02/23 14:00 BP 121/71 07/02/23 14:00 Pulse Ox 98 07/02/23 14:00 FiO2 Intake & Output 07/01/23 07/02/23 07/02/23 18:59 06:59 18:59 Output Total 520 Balance -520 Output: Urine 520 Other: Voiding Method Toilet Toilet # Voids 2 - Exam GENERAL DESCRIPTION: A middle-age male lying in bed in no distress RESPIRATORY SYSTEM: Unlabored breathing , clear to auscultation anteriorly HEART: S1 S2 regular rate and rhythm , ABDOMEN: Soft , no tenderness EXTREMITIES: Right big toe amputation site wound is currently dressed - Labs CBC & Chem 7: 07/02/23 05:30 07/02/23 05:30 Labs: Abnormal Lab Results - Last 24 Hours (Table) 07/01/23 07/01/23 07/02/23 Range/Units 16:58 19:27 05:30 Plt Count 450 H (140-440) X 10*3/uL MPV 9.1 L (9.5-12.2) FL POC Glucose (mg/dL) 163 H 166 H (70-110) mg/dL AST (14-35) U/L Total Protein (6.2-8.2) g/dL Albumin (3.8-4.9) g/dL Albumin/Globulin Ratio (1.60-3.17) Ratio 07/02/23 07/02/23 07/02/23 Range/Units 05:30 06:10 11:27 Plt Count (140-440) X 10*3/uL MPV (9.5-12.2) FL POC Glucose (mg/dL) 114 H 168 H (70-110) mg/dL AST 12 L (14-35) U/L Total Protein 6.1 L (6.2-8.2) g/dL Albumin 3.4 L (3.8-4.9) g/dL Albumin/Globulin Ratio 1.26 L (1.60-3.17) Ratio Microbiology - Last 24 Hours (Table) 06/28/23 14:36 Blood Culture - Preliminary Blood Assessment and Plan (1) Streptococcal bacteremia Status: Acute Code(s): R78.81 - BACTEREMIA; B95.5 - UNSP STREPTOCOCCUS THE CAUSE OF DISEASES [facility] SNOMED Code(s): 317177922365 (2) Diabetic infection of right foot Status: Acute Code(s): E11.628 - TYPE 2 DIABETES MELLITUS WITH OTHER SKIN COMPLICATIONS; L08.9 - LOCAL INFECTION OF THE SKIN AND SUBCUTANEOUS TISSUE, UNSP SNOMED Code(s): 48070069 (3) Wet gangrene Status: Acute Code(s): I96 - GANGRENE, NOT ELSEWHERE CLASSIFIED SNOMED Code(s): 715417567 Plan: 1patient presented to hospital with sepsis in this patient who did have fever elevated white count is also likely her right big toe diabetic foot infection in this patient with evidence of significant swelling and gas formation likely related to the polymicrobial melissa usually associated with diabetic foot infect ion 2-positive blood culture with Streptococcus agalactiae likely due to right big toe diabetic foot infection 3-patient has shown clinical improvement, patient antibiotics will be switched over to Rocephin 2 g daily along with oral Flagyl and a close outpatient follow- up prescription sent to pharmacy Dictation was produced using [employer] software. please excuse any grammatical, word or spelling errors.
--- NOTE | 2023-07-05 10:37 | CDI ---
Documentation Clarification Form Date: 07/05/2023 10:19:42 AM From: Zohra Nogueira RN, CCDS Email: [email or web address] Admit Date: 06/23/2023 07:23:00 PM Patient Name: Genaro Yost Visit Number: [id number] Discharge Date: 07/02/2023 03:53:00 PM ATTENTION: The Clinical Documentation Specialists (CDI) and [facility] Coding Staff appreciate your assistance in clarifying documentation. Please respond to the clarification below the line at the bottom and electronically sign. The CDI & [facility] Coding staff will review the response and follow-up if needed. Please note: Queries are made part of the Legal Health Record. If you have any questions, please contact the author of this message via ITS. Dr. Paul Zaman Gangrene infection of right great toe is documented in the H&P and progress notes. Additional clarification is requested. Patient history/risk factors: no reported past medical history. Presented with right great toe swelling, discoloration and skin sloughing. Admitted with sepsis secondary to gangrene of the right great toe Clinical Indicators: 06/23-foot xray: Marked soft tissue swelling, soft tissue gas and tiny radiopaque foreign body of the right great toe 06/23 BC: streptococcus agalactiae H&P: "Patient with swelling of the right great toe with discoloration and sloughing of skin, no active drainage. Foot x-ray showed soft tissue swelling, soft gas and tiny radiopaque foreign body in the right great toe along the dorsal aspect of the great toe. 06/24 ID: "patient presented to hospital with sepsis in this patient who did have fever and elevated white count. Also likely this is a right big toe diabetic foot infection in this patient with evidence of significant swelling and gas formation likely related to the polymicrobial melissa usually associated with diabetic foot infection." 06/25 Procedure: "Right great toe amputation for diabetic foot ulcer and infection." Discharge summary: "In addition to gangrene infection and bacteremia, patient was also found to have newly diagnosed diabetes with A1c 12.7 and persistently elevated blood pressures." Treatment: right great toe amputation; IV Unasyn 3gm Q6H 06/24-07/02; IV Rocephin 2gm Q24H on 07/02; IV Zosyn 3.375gm Q8H 06/23-06/24; IV Vancomycin 1750mg x1 on 06/23; IV Vancomycin 1750mg Q8H on 06/24; After work up and study can you further specify the type of gangrene? [ ] Gas gangrene [ ] Other, please specify [ ] Unable to determine (Template Last Revised: February 2023) Gas gangrene MTDD
== END 2023-07-02 15:53 | disposition home or self-care (01) | DRG 853 ==
LOC: EC 14:34 → 4SSUR 19:23
PROVIDERS: ADMIT Internal Medicine; ATTEND Internal Medicine
PROC: 0Y6P0Z0 Detachment at Right 1st Toe, Complete, Open Approach (ICD-10-PCS; principal; 2023-06-23)
PROC: 02HV33Z Insertion of Infusion Device into Superior Vena Cava, Percutaneous Approach (ICD-10-PCS; 2023-06-23)
PROC: B548ZZA Ultrasonography of Superior Vena Cava, Guidance (ICD-10-PCS; 2023-06-23)
PROC: B5181ZA Fluoroscopy of Superior Vena Cava using Low Osmolar Contrast, Guidance (ICD-10-PCS; 2023-06-23)
DX: A40.1 Sepsis due to streptococcus, group B (principal); A48.0 Gas gangrene; E11.52 Type 2 diabetes mellitus with diabetic peripheral angiopathy with gangrene; E87.1 Hypo-osmolality and hyponatremia; M86.8X7 Other osteomyelitis, ankle and foot; S91.301A Unspecified open wound, right foot, initial encounter; L97.519 Non-pressure chronic ulcer of other part of right foot with unspecified severity; E11.621 Type 2 diabetes mellitus with foot ulcer; E11.628 Type 2 diabetes mellitus with other skin complications; E11.69 Type 2 diabetes mellitus with other specified complication; E87.8 Other disorders of electrolyte and fluid balance, not elsewhere classified; Z79.4 Long term (current) use of insulin; Z79.84 Long term (current) use of oral hypoglycemic drugs; Z79.2 Long term (current) use of antibiotics; Z79.899 Other long term (current) drug therapy
CPT/HCPCS: 36415; 36573; 80048; 80053; 80061; 83036; 83605; 83735; 85025; 85027; 85652; 86140; 87040; 87077; 87186; 96365; 96375; 99284